=== PATIENT | male | born 1975 | race Caucasian/White ===

== ENCOUNTER 2018-08-15 19:04 | Emergency (ER) | payer BC, OTHER ==
[~2018-08-15] VITALS: Ht 175.3 cm; Wt 77.1 kg
--- OUTSIDE RECORDS SUMMARY | ~2018-08-15 | XMS | Encounter Summary ---
Demographics + + + | Address | [address] | | | [place] [address] | + + + | Home Phone | | + + + | Preferred Language | Unknown | + + + | Marital Status | | + + + | Congregation Affiliation | LDS | + + + | Race | White | + + + | Ethnic Group | Not or | + + + Author + + + | Author | [facility] | + + + | Organization | [facility] | + + + | Address | Unknown | + + + | Phone | Unavailable | + + + Support + + + + + | Name | Relationship | Address | Phone | + + + + + | MATTY GAMBLE | ECON | [address] | | | | | [place] | | | | | [address] | | + + + + + Care Team Providers + +------+ + | Care Mds Rn Name | Role | Phone | + +------+ + | Sam Powell DO | PCP | | + +------+ + Reason for Visit + + + | Reason | Comments | + + + | Refill Request | | + + + Encounter Details +--------+--------+ + + + | Date | Type | Department | Care Team | Description | +--------+--------+ + + + | 07/04/ | Refill | Transplant | [facility] | Refill Request | | 2018 | | Coordinators [address] MD [address] | | | | | [address] | [place], [place] | | | | | Road [place], [place] | [address] | | | | | [address] | [phone] | | | | | [phone] | | | +--------+--------+ + + + Social History + +-------+ +--------+------+ | Tobacco Use | Types | Packs/Day | Years | Date | | | | | Used | | + +-------+ +--------+------+ | Never Smoker | | | | | + +-------+ +--------+------+ + +---+---+---+ | Smokeless Tobacco: | | | | | Never Used | | | | + +---+---+---+ + + +---------+ + | Alcohol Use | Drinks/We | oz/Week | Comments | | | ek | | | + + +---------+ + | No | | | | + + +---------+ + + + + | Sex Assigned at | Date Recorded | | | | + + + | Not on file | | + + + as of this encounter Plan of Treatment +--------+---------+ + + + | Date | Type | Specialty | Care Team | Description | +--------+---------+ + + + | 06/08/ | Office | Liver Transplant | José Miguel Ornelas | | | 2019 | Visit | | MD [address] | | | | | | [place] [facility] [place] | | | | | | [address] | | | | | | [phone] | | | | | | | | +--------+---------+ + + + as of this encounter Visit Diagnoses Not on filein this encounter"
--- OUTSIDE RECORDS SUMMARY | ~2018-08-15 | XMS | Encounter Summary ---
Demographics + + + | Address | [address] | | | [place] [address] | + + + | Home Phone | | + + + | Preferred Language | Unknown | + + + | Marital Status | | + + + | Rastafarian Affiliation | LDS | + + + | Race | White | + + + | Ethnic Group | Not or | + + + Author + + + | Author | [facility] | + + + | Organization | [facility] | + + + | Address | Unknown | + + + | Phone | Unavailable | + + + Support + + + + + | Name | Relationship | Address | Phone | + + + + + | MATTY GAMBLE | ECON | [address] | | | | | [place] | | | | | [address] | | + + + + + Care Team Providers + +------+ + | Care Deposit Refund Clerk Name | Role | Phone | + +------+ + | Sam Powell DO | PCP | | + +------+ + Reason for Visit + + + | Reason | Comments | + + + | Liver Transplant | follow-up [facility] results | | Follow Up | | + + + Encounter Details +--------+ + + + + | Date | Type | Department | Care Team | Description | +--------+ + + + + | 07/21/ | MyChart | Transplant | Helen Weller RN | RE: update from | | 2018 | Encounter | Coordinators [address] | [address] | | | | [address] | [facility], | | | | | [address] [place], [place] | [place] [address] | | | | | [address] | | | | | | [phone] | | | +--------+ + + + + Social History + +-------+ [...] | José Miguel Ornelas | | | 2018 | Visit | | MD [address] | | | | | | [place], [place] | | | | | | [address] | | | | | | [phone] | | | | | | | | +--------+---------+ + + + as of this encounter Visit Diagnoses Not on filein this encounter"
--- OUTSIDE RECORDS SUMMARY | ~2018-08-15 | XMS | Clinical Summary ---
Demographics + + + | Address | [address] | | | [place] [address] | + + + | Home Phone | | + + + | Preferred Language | Unknown | + + + | Marital Status | | + + + | Sikhism Affiliation | LDS | + + + | Race | White | + + + | Ethnic Group | Not or | + + + Author + + + | Author | [facility] | + + + | Organization | [facility] | + + + | Address | Unknown | + + + | Phone | Unavailable | + + + Support + + + + + | Name | Relationship | Address | Phone | + + + + + | MATTY MACK | ECON | [address] | | | | | [place] | | | | | [address] | | + + + + + Care Team Providers + +------+ + | Care Tourist Adviser Name | Role | Phone | + +------+ + | Sam Powell DO | PP | | + +------+ + Source Comments BL[facility] Allergies + + + + + + | Active Allergy | Reactions | Severity | Noted | Comments | | | | | Date | | + + + + + + | Mycophenolate | Nausea | | 02/07/20 | Unable to take due | | Mofetil | | | 12 | to upset stomach | + + + + + + | Zinc | Nausea and Vomiting | | 02/07/20 | | | | | | 12 | | + + + + + + Current Medications + + + +---------+------+------+-------+ | Prescription | Sig. | Disp. | Refills | Star | End | Statu | | | | | | t | Date | s | | | | | | Date | | | + + + +---------+------+------+-------+ | multivitamin Oral | Take 1 Cap by mouth | 100 Cap | 5 | 05/17 | | Activ | | capsule | once daily. | | | 01/06 | | e | | | | | | 13 | | | + + + +---------+------+------+-------+ | aspirin 325 mg | Take 1 Tab by mouth | 100 Tab | 5 | 07 | | Activ | | Oral tablet | once daily. | | | 220 | | e | | | | | | 13 | | | + + + +---------+------+------+-------+ | calcium-vitamin D | Take 1 Tab by mouth | 100 Tab | 5 | 05/17 | | Activ | | 500 mg(1,250mg) -200 | three times daily | | | 220 | | e | | unit Oral tablet | with meals. | | | 13 | | | + + + +---------+------+------+-------+ | magnesium oxide | Take 1 Tab by mouth | 60 Tab | 5 | 06/17 | | Activ | | 400 mg Oral tablet | two times daily. | | | 02/03 | | e | | | | | | 13 | | | + + + +---------+------+------+-------+ | lansoprazole | Take 1 Cap by mouth | 30 Cap | 5 | 08 | | Activ | | (PREVACID) 30 mg | once daily in the | | | 320 | | e | | Oral capsule,delayed | morning. Administer | | | 13 | | | | release(DR/EC) | before food; best if | | | | | | | | taken before | | | | | | | | breakfast. | | | | | | + + + +---------+------+------+-------+ | | Take 1 Tab by mouth | 30 Tab | 5 | 06/17 | | Activ | | trimethoprim-sulfame | once daily. | | | 02/03 | | e | | thoxazole 80-400 mg | | | | 13 | | | | Oral tablet | | | | | | | + + + +---------+------+------+-------+ | azaTHIOprine 100 | Take 50 mg by mouth | | | | | Activ | | mg oral tablet | three times daily. | | | | | e | + + + +---------+------+------+-------+ | | Take by mouth. | | | | | Activ | | multivitamin-therape | | | | | | e | | utic minerals | | | | | | | | (VITAMINS AND | | | | | | | | MINERALS) oral | | | | | | | | tablet | | | | | | | + + + +---------+------+------+-------+ | PREDNISONE 5 mg | take 1 tablet by | 90 | 4 | 03/2 | | Activ | | oral | mouth once daily | tablet | | 1/20 | | e | | tabletIndications: | | | | 18 | | | | Liver replaced by | | | | | | | | transplant (HCC) | | | | | | | + + + +---------+------+------+-------+ | TACROLIMUS 1 mg | take 3 capsules by | 540 | 5 | 06/2 | | Activ | | oral | mouth twice a day | capsule | | 1/20 | | e | | capsuleIndications: | | | | 18 | | | | Liver replaced by | | | | | | | | transplant (HCC) | | | | | | | + + + +---------+------+------+-------+ | AZATHIOPRINE 50 mg | take 3 tablets by | 270 | 3 | 08/2 | | Activ | | oral tablet | mouth every evening | tablet | | 0/20 | | e | | | | | | 18 | | | + + + +---------+------+------+-------+ Active Problems + + + | Problem | Noted Date | + + + | 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 | + + + | Ulcerative colitis (HCC) | 10/18/2010 | + + + | Liver replaced by transplant (HCC) | 03/23/2008 | + + + | Complication of transplanted liver (HCC) | 03/23/2008 | + + + + + | Overview: ICD10 | + + Resolved Problems + + + + | Problem | Noted | Resolved | | | Date | Date | + + + + | Postoperative wound dehiscence | 06/11/20 | | | | 13 | 4 | + + + + | Cholangitis | 05/12/20 | | | | 13 | 4 | + + + + | Abdominal pain | 05/12/20 | | | | 13 | 4 | + + + + | Nausea and vomiting | 05/12/20 | | | | 13 | 4 | + + + + | Biliary obstruction | 04/16/20 | | | | 13 | 4 | + + + + | Hyperbilirubinemia | 10/08/20 | | | | 12 | 4 | + + + + | Abdominal pain | 10/08/20 | | | | 12 | 4 | + + + + | Jaundice, hepatocellular | 12/21/19 | | | | 12 | 4 | + + + + | Red cell antibodies - allow additional time for crossmatch | 10/25/20 | | | | 10 | 4 | + + + + + + | Overview: Patient has an 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 These antibodies | | interfere with compatibility testing. Allow at 4-6 hours for | | completion of compatibility testing. | + + Encounters +--------+ + + + + | Date | Type | Specialty | Care Team | Description | +--------+ + + + + | 07/24/ | Telephone | | José Miguel Ornelas | Follow-up encounter | | 2017 | | | MD Maximo | (Liver biopsy | | | | | | results) | +--------+ + + + + | 07/24/ | Documentati | | Helen Weller RN | Liver Transplant | | 2017 | on | | | Follow Up (path | | | | | | conference) | +--------+ + + + + | 07/21/ | MyChart | | Helen Weller RN | RE: update from | | 2017 | Encounter | | | Ceci | +--------+ + + + + | 07/09/ | Hospital | | Manjinder Paris | | | 2017 | Encounter | | | | +--------+ + + + + | 07/09/ | Documentati | | Helen Weller RN | Liver Transplant | | 2018 | on | | | Follow Up (follow-up | | | | | | MRCP) | +--------+ + + + + | 07/09/ | MyChart | | Dora Haywood, | RE: RE: Appointments | 2017 | Encounter | | RN | | +--------+ + + + + | 07/08/ | Hospital | | José Miguel Ornelas | | 2017 | Encounter | | E, MD | | +--------+ + + + + | 07/04/ | Refill | | José Miguel Ornelas | Refill Request | 2018 | | | E, MD | | +--------+ + + + + | 06/30/ | MyChart | | Dora Haywood, | RE: RE: Biopsy | 2017 | Encounter | | RN | | +--------+ + + + + | 06/30/ | MyChart | | Radiology | Ultrasound LIVER | | 2018 | Encounter | | | biopsy prep | | | | | | information. Please | | | | | | read now. | +--------+ + + + + | 06/23/ | Procedure | | | | | 2018 | Pass | | | | +--------+ + + + + | 06/23/ | Documentati | | José Miguel Ornelas | Liver Transplant | | 2018 | on | | E, | Follow Up (elevated | | | | | | lft's) | +--------+ + + + + | 06/22/ | Abstract | | José Miguel Ornelas | | | 2018 | | | E, MD | | +--------+ + + + + | 06/09/ | Office | | José Miguel Ornelas | Immunosuppression | | 2017 | Visit | | E, MD | (HCC) (Primary Dx); | | | | | | Liver transplanted | | | | | | (HCC); Elevated | | | | | | liver enzymes | +--------+ + + + + | 06/09/ | MyChart | | Dora Haywood, | labs | | 2018 | Encounter | | RN | | +--------+ + + + + | 06/09/ | Abstract | | José Miguel Ornelas | | | 2017 | | | E, MD | | +--------+ + + + + from Last 3 Months Immunizations + + + + | Name | Dates Previously Given | Next Due | + + + + | HepA-Adult | 01/23/2004 | | + + + + | HepB-Adult | 01/23/2004 | | + + + + | Influenza, seasonal, | 08/28/2016 | | | injectable, | | | | preservative free | | | | (IIV3) | | | + + + + | Influenza, split | 08/07/2011 | | + + + + | Influenza, split | 07/26/2015 | | | (incl. purified | | | | surface antigen) | | | + + + + | Pneumococcal 23 | 02/05/2012, 01/18/2004 | | + + + + | Ppd (tuberculin | 04/21/2012 | | | Purified Protein | | | | Derivative) | | | + + + + | Tdap | 02/05/2012 | | + + + + | Tetanus Toxoid, | 01/18/2004 | | | adsorbed | | | + + + + Family History + +------+--------+ + | Relation | Name | Status | Comments | + +------+--------+ + Social History + +-------+ +--------+------+ | [...] on file | | + + + Last Filed Vital Signs + + + + | Vital Sign | Reading | Time Taken | + + + + | Blood Pressure | 100/74 | 07/09/2018 10:45 AM PDT | + + + + | Pulse | 73 | 07/09/2018 10:45 AM PDT | + + + + | Temperature | 36.8 C (98.2 F) | 07/09/2018 10:15 AM PDT | + + + + | Respiratory Rate | 17 | 07/09/2018 10:45 AM PDT | + + + + | Oxygen Saturation | 98% | 07/09/2018 10:45 AM PDT | + + + + | Inhaled Oxygen | - | - | | Concentration | | | + + + + | Weight | 79.4 kg (175 lb) | 07/09/2018 7:32 AM PDT | + + + + | Height | 175.3 cm (5' 9") | 07/09/2018 7:32 AM PDT | + + + + | Body Mass Index | 25.84 | 07/09/2018 7:32 AM PDT | + + + + Plan of Treatment +--------+---------+ + + + | Date | Type | Specialty | Care Team | Description | +--------+---------+ + + + | 06/08/ | Office | | José Miguel Ornelas | | | 2019 | Visit | | MD Maximo [address] | | | | | | [place], [place] | | | | | | [address] | | | | | | [phone] | | | | | | | | +--------+---------+ + + + + + + + + | Health Maintenance | Due Date | Last Done | Comments | + + + + + | INFLUENZA VACCINE | | 07/14/2017, 08/28/2016, | | | (FLU SHOT) | 8 | 08/27/2016, Additional history | | | | | exists | | + + + + + Implants + +------+--------+ +--------+--------+--------+ | Explanted | Type | Area | Manufacture | Device | Expira | Model | | | | | r | | tion | / | | | | | | Identi | Date | Serial | | | | | | fier | | / Lot | + +------+--------+ +--------+--------+--------+ | Stent Sof-Flex 7.0 X 12fr - | | N/A: | COOK | | 05/26/ | [id number] | | [id number]: Qty: 1 on | | Abdome | MEDICAL | | 2014 | | | 05/26/2013 by Joanna Rosales, | | n | | | | /[id number] | | MD | | | | | | 2 | | | | | | | | /[id number] | | | | | | | | 475 | + +------+--------+ +--------+--------+--------+ Procedures + +--------+ + + + | Procedure Name | Priori | Date/Time | Associated Diagnosis | Comments | | | ty | | | | + +--------+ + + + | US BIOPSY LIVER WITH | Routin | 07/09/2018 | Liver replaced by | Results for this | | GUIDANCE | e | 9:59 AM | transplant (HCC) | procedure are in the | | | | PDT | | results section. | + +--------+ + + + | SURGICAL PATHOLOGY | Routin | 07/09/2018 | | Results for this | | | e | 8:43 AM | | procedure are in the | | | | PDT | | results section. | + +--------+ + + + | PROCEDURE NOTE | Routin | 07/08/2018 | | Results for this | | | e | 11:59 PM | | procedure are in the | | | | PDT | | results section. | + +--------+ + + + | MRI CHOLANGIOGRAPHY | Routin | 07/08/2018 | Liver replaced by | Results for this | | WWO CONTRAST (+ | e | 6:58 PM | transplant (HCC) | procedure are in the | | LIVER MASS) | | PDT | | results section. | + +--------+ + + + | LIVER TRANSPLANT | Routin | 06/19/2018 | | Results for this | | POST PANEL (EXT | e | 6:57 AM | | procedure are in the | | RESULTS) | | PDT | | results section. | + +--------+ + + + | LIVER TRANSPLANT | Routin | 06/05/2018 | | Results for this | | POST PANEL (EXT | e | 6:53 AM | | procedure are in the | | RESULTS) | | PDT | | results section. | + +--------+ + + + from Last 3 Months Results US BIOPSY LIVER WITH GUIDANCE (07/09/2018 9:59 AM) + + + | Narrative | Performed At | + + + | PROCEDURE: US-GUIDED LIVER BIOPSY (NON-FOCAL). HISTORY: | [facility] | | Abnormal liver function tests (LFTs), Liver transplant recipient | RADIOLOGY VOICE | | Focused history and physical exam: Vital signs stable, heart rate | RECOGNITION 2 | | regular, lungs clear to auscultation. No significant changes in | | | relevant past or current medical conditions. Patient condition is | | | appropriate for current procedure, will proceed with procedure. I | | | agree with the Sedation/Analgesia plan as documented in EPIC. | | | COMPARISON: [facility] 07/08/2018 TECHNIQUE: After a procedures, | | | alternatives, risks, and questions (PARQ) conference, written and oral | | | consent was obtained from the patient. A Team Pause was | | | performed. The liver was scanned, and a point was marked on the | | | skin, overlying the right lobe. The area was prepped and draped in | | | sterile fashion. 10 ml of 1% buffered lidocaine was used for local | | | anesthesia. Under ultrasound guidance, a 16-gauge core biopsy of the | | | liver was obtained. The specimen was submitted in formalin to | | | pathology. The patient tolerated the procedure without complication | | | and returned to 11B Procedural Care Unit for post-procedure | | | monitoring. Moderate sedation was supervised by the attending | | | radiologist and administered by the radiology nurse using 1 mg Versed | | | IV and 150 mcg Fentanyl IV. Sedation start time 0927. Sedation stop | | | time 0940. FINDINGS: The liver demonstrates normal | | | echogenicity. No focal lesion. The gallbladder and bile ducts are | | | normal. Procedure image demonstrates the needle tip within the | | | right lobe. Post procedure imaging shows no hematoma. | | | IMPRESSION: Ultrasound-guided non-focal liver biopsy. | | | Attestation statement: By my electronic signature below, I, the | | | attending radiologist, was present for the entire procedure as | | | described in this note. I have personally reviewed the images and, | | | if necessary, edited the report. I agree with the report as now | | | presented. Final signature: Guadalupe Greer MD 07/09/2018 10:14 | | | AM Preliminary: Gwen Rosado MD 07/09/2018 9:49 AM | | | Dictation initiated: Gwen Rosado MD 07/09/2018 9:40 AM | | + + + + + | Procedure Note | + + | Service Account, Cuurio In Interface - 07/09/2018 10:15 AM PDT PROCEDURE: | | US-GUIDED LIVER BIOPSY (NON-FOCAL). HISTORY: Abnormal liver function tests (LFTs), Liver | | transplant recipient Focused history and physical exam: Vital signs stable, heart rate | | regular, lungs clear to auscultation. No significant changes in relevant past or current | | medical conditions. Patient condition is appropriate for current procedure, will | | proceed with procedure. I agree with the Sedation/Analgesia plan as documented in EPIC. | | COMPARISON: [facility] 07/08/2018 TECHNIQUE: After a procedures, alternatives, risks, and | | questions (PARQ) conference, written and oral consent was obtained from the patient. A | | Team Pause was performed. The liver was scanned, and a point was marked on the skin, | | overlying the right lobe. The area was prepped and draped in sterile fashion. 10 ml of | | 1% buffered lidocaine was used for local anesthesia. Under ultrasound guidance, a | | 16-gauge core biopsy of the liver was obtained. The specimen was submitted in formalin | | to pathology. The patient tolerated the procedure without complication and returned to | | 11B Procedural Care Unit for post-procedure monitoring. Moderate sedation was | | supervised by the attending radiologist and administered by the radiology nurse using 1 | | mg Versed IV and 150 mcg Fentanyl IV. Sedation start time 0927. Sedation stop time 0940. | | FINDINGS: The liver demonstrates normal echogenicity. No focal lesion. The gallbladder | | and bile ducts are normal. Procedure image demonstrates the needle tip within the | | right lobe. Post procedure imaging shows no hematoma. IMPRESSION: Ultrasound-guided | | non-focal liver biopsy. Attestation statement: By my electronic signature below, I, | | the attending radiologist, was present for the entire procedure as described in this | | note. I have personally reviewed the images and, if necessary, edited the report. I | | agree with the report as now presented. Final signature: Guadalupe Greer MD 07/09/2018 | | 10:14 AM Preliminary: Gwen Rosado MD 07/09/2018 9:49 AM Dictation initiated: | | Gwen Rosado MD 07/09/2018 9:40 AM | |IMPRESSION: | | | |Ultrasound-guided non-focal liver biopsy. | | | | | | | |Attestation statement: By my electronic signature below, I, the attending radiologist, was present for the entire procedure as described in this note. | | | |I have personally reviewed the images and, if necessary, edited the report. I agree with th e report as now presented. | | | |Final signature: Guadalupe Greer MD 07/09/2018 10:14 AM | |Preliminary: Gwen Rosado MD 07/09/2018 9:49 AM | |Dictation initiated: Gwen Rosado MD 07/09/2018 9:40 AM | + + + +---------+ + + | Performing | Address | City/State/Zipcode | Phone Number | | Organization | | | | + +---------+ + + | [facility] | | | | | VOICE RECOGNITION 2 | | | | + +---------+ + + SURGICAL PATHOLOGY (07/09/2018 8:43 AM) + + + + + | Component | Value | Ref Range | Performed At | + + + + + | Clinical History | Elevated LFTs. Per | | [facility] | | | chart, history of | | OF PATHOLOGY | | | primary biliary | | | | | cirrhosis status post | | | | | first orthotopic liver | | | | | transplant in March 2004 | | | | | and re-transplant for | | | | | recurrence in May 2013, | | | | | now presenting with | | | | | variably elevated liver | | | | | function tests since | | | | | 2015 with notably high | | | | | alk phos levels. On | | | | | 06/05/2018, AST 82, ALT | | | | | 64, Alk Phos 747, and | | | | | total bilirubin 4.8. | | | + + + + + | Final Pathologic | A. Allograft liver, | | [facility] | | Diagnosis | biopsy: Changes | | OF PATHOLOGY | | | consistent with chronic | | | | | bile duct injury, see | | | | | comment No evidence of | | | | | acute or chronic | | | | | rejection Trichrome | | | | | stain confirms portal | | | | | and periportal fibrosis, | | | | | with focal | | | | | bridgingComment: | | | | | Sections reveal hepatic | | | | | parenchyma with portal | | | | | and yuan-portal | | | | | fibrosis, bile duct | | | | | damage, ductular | | | | | reaction, and | | | | | cholestasis. True bile | | | | | ducts are present in | | | | | normal numbers, but | | | | | exhibit signs of damage | | | | | including epithelial | | | | | drop-out. A copper stain | | | | | is positive in small | | | | | clusters of periportal | | | | | hepatocytes, suggesting | | | | | chronicity. A PAS/D | | | | | stain fails to highlight | | | | | pathologic | | | | | intracytoplasmic | | | | | inclusions and an iron | | | | | stain is negative. There | | | | | is no evidence of acute | | | | | or chronic graft | | | | | rejection. In aggregate, | | | | | these histologic | | | | | features are those of | | | | | chronic bile duct | | | | | injury, for which the | | | | | differential diagnosis | | | | | includes recurrent | | | | | primary sclerosing | | | | | cholangitis, bile duct | | | | | stricture, or other | | | | | causes of outflow | | | | | obstruction. Meraz slides | | | | | were also reviewed by | | | | | Dr. Flynn Cortes, | | | | | with agreement.Case | | | | | seen by:Jodie Rodríguez, | | | | | DO | | | | | | | | | | Pathologist My | | | | | electronic signature | | | | | indicates that I have | | | | | personally reviewed all | | | | | diagnostic slides, the | | | | | gross and/or microscopic | | | | | portion of this report | | | | | and formulated the final | | | | | diagnosis. | | | + + + + + | Gross Description | Received in formalin is | | [facility] | | | a single specimen | | OF PATHOLOGY | | | labeled with the | | | | | patient's name (initials | | | | | JL) and medical record | | | | | number [id number]. | | | | | Liver: Received labeled | | | | | "SONIA-A" is a single core | | | | | of green soft tissue | | | | | measuring 1.6 x 0.1 cm. | | | | | The specimen is wrapped | | | | | and entirely submitted | | | | | in cassette A1.(LN) | | | + + + + + | ANCILLARY | Analyte specific | | [facility] | | INFORMATION | reagents are used in | | OF PATHOLOGY | | | many laboratory tests | | | | | necessary for standard | | | | | medical care. This test | | | | | was developed and its | | | | | performance | | | | | characteristics | | | | | determined by [facility] | | | | | laboratories. It has | | | | | not been cleared or | | | | | approved by the [place] Food | | | | | and Drug Administration | | | | | (FDA). FDA does not | | | | | require this test to go | | | | | through premarket FDA | | | | | review. This test is | | | | | used for clinical | | | | | purposes. It should not | | | | | be regarded as | | | | | investigational or for | | | | | research. This | | | | | laboratory is certified | | | | | under the Clinical | | | | | Laboratory Improvement | | | | | Amendments (CLIA) as | | | | | qualified to perform | | | | | high complexity clinical | | | | | laboratory testing. | | | + + + + + + + | Specimen | + + | Tissue - Liver | + + + + + + + | Performing | Address | City/State/Zipcode | Phone Number | | Organization | | | | + + + + + | [facility] | [address] | [place] [address] | | | PATHOLOGY | [address] | | | + + + + + PROCEDURE NOTE (07/08/2018 11:59 PM)MRI CHOLANGIOGRAPHY WWO CONTRAST (+ LIVER MASS) (2017 6:58 PM) + + + | Narrative | Performed At | + + + | EXAM: Abdomen MRI/MRCP without and with intravenous contrast. | [facility] | | HISTORY: Abnormal liver function tests (LFTs) s/p ltx eval for ductal | RADIOLOGY VOICE | | dilation. 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 then Re-transplant | RECOGNITION 2 | | 05/26/13 for recurrent PSC complicated by significant recurrent | | | cholangitis. Now with elevated LFTs question recurrent PSC versus | | | ischemic cholangiopathy. COMPARISON: Outside MRCP 10/27/2017 | | | TECHNIQUE: Multiplanar MRI of the abdomen was performed without and | | | with gadolinium-based intravenous contrast. MRCP was also | | | performed. FINDINGS: LIVER: Status post liver transplant with | | | hepaticojejunostomy. No steatosis. No focal enhancing lesions. Diffuse | | | mildly irregular intrahepatic ductal dilatation with progressive | | | dilation of medial left intrahepatic ducts up to 9 mm (704/55), | | | previously 5 mm. Lateral left intrahepatic ducts also asymmetrically | | | dilated, less prominent than medial. No discrete mass lesion | | | identified at the apex of dilated left ducts however focal stricture, | | | either inflammatory or neoplastic, should be considered. Diffuse | | | peribiliary enhancement is compatible with a inflammatory process. | | | Restricted diffusion noted circumferentially around the dilated left | | | hepatic ducts suggestive of a superimposed infectious process. | | | PANCREAS: Unremarkable. SPLEEN: Mildly enlarged, unchanged. | | | ADRENALS: Unremarkable. KIDNEYS: Small bilateral renal cysts, not | | | significantly changed from priors. GI TRACT: Visualized portions are | | | unremarkable. PERITONEUM: No free air or fluid. LYMPH NODES: No | | | lymphadenopathy. VESSELS: Unremarkable. BONES AND SOFT TISSUES: | | | Unremarkable. IMPRESSION: Diffuse irregular branching and | | | stricturing ductal dilatation most consistent with recurrent PSC, with | | | progressive asymmetric left-sided intrahepatic segmental ducts which | | | may reflect asymmetric PSC or superimposed neoplastic process. | | | Restricted diffusion and periductal enhancement in the left hepatic | | | lobe also raises concern for superimposed cholangitis. No focal | | | hepatic mass lesion identified. I have personally reviewed the | | | images and, if necessary, edited the report. I agree with the report | | | as now presented. Final signature: Agustina Garcia MD | | | 07/09/2018 8:48 AM Preliminary: Agustina Garcia MD | | | Dictation initiated: Agustina Garcia MD 07/09/2018 8:18 AM | | + + + + + | Procedure Note | + + | Service Account, Radiant Res In Interface - 07/09/2018 8:50 AM PDT EXAM: Abdomen | | MRI/MRCP without and with intravenous contrast. HISTORY: Abnormal liver function tests | | (LFTs) s/p ltx eval for ductal dilation. 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 then | | Re-transplant 05/26/13 for recurrent PSC complicated by significant recurrent | | cholangitis. Now with elevated LFTs question recurrent PSC versus ischemic | | cholangiopathy. COMPARISON: Outside MRCP 10/27/2017 TECHNIQUE: Multiplanar MRI of the | | abdomen was performed without and with gadolinium-based intravenous contrast. MRCP was | | also performed. FINDINGS: LIVER: Status post liver transplant with hepaticojejunostomy. | | No steatosis. No focal enhancing lesions. Diffuse mildly irregular intrahepatic ductal | | dilatation with progressive dilation of medial left intrahepatic ducts up to 9 mm | | (704/55), previously 5 mm. Lateral left intrahepatic ducts also asymmetrically dilated, | | less prominent than medial. No discrete mass lesion identified at the apex of dilated | | left ducts however focal stricture, either inflammatory or neoplastic, should be | | considered. Diffuse peribiliary enhancement is compatible with a inflammatory process. | | Restricted diffusion noted circumferentially around the dilated left hepatic ducts | | suggestive of a superimposed infectious process. PANCREAS: Unremarkable. SPLEEN: Mildly | | enlarged, unchanged.ADRENALS: Unremarkable.KIDNEYS: Small bilateral renal cysts, not | | significantly changed from priors.GI TRACT: Visualized portions are | | unremarkable.PERITONEUM: No free air or fluid. LYMPH NODES: No lymphadenopathy.VESSELS: | | Unremarkable. BONES AND SOFT TISSUES: Unremarkable. 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 Restricted diffusion and periductal | | enhancement in the left hepatic lobe also raises concern for superimposed cholangitis. | | No focal hepatic mass lesion identified. I have personally reviewed the images and, if | | necessary, edited the report. I agree with the report as now presented. Final | | signature: Agustina Garcia MD 07/09/2018 8:48 AM Preliminary: Agustina Garcia MD | | Dictation initiated: Agustina Garcia MD 07/09/2018 8:18 AM | | | |IMPRESSION: | | | |Diffuse irregular branching and stricturing ductal dilatation most consistent with recurren t PSC, with progressive asymmetric left-sided intrahepatic segmental ducts which may reflect asymmetric PSC or | |superimposed neoplastic process. Restricted diffusion and periductal enhancement in the lef t hepatic lobe also raises concern for superimposed cholangitis. | | | |No focal hepatic mass lesion identified. | | | |I have personally reviewed the images and, if necessary, edited the report. I agree with th e report as now presented. | | | |Final signature: Agustina Garcia MD 07/09/2018 8:48 AM | |Preliminary: Agustina Garcia MD | |Dictation initiated: Agustina Garcia MD 07/09/2018 8:18 AM | + + + +---------+ + + | Performing | Address | City/State/Zipcode | Phone Number | | Organization | | | | + +---------+ + + | [facility] | | | | | VOICE RECOGNITION 2 | | | | + +---------+ + + LIVER TRANSPLANT POST PANEL (EXT RESULTS) (06/19/2018 6:57 AM)Only the most recent of 2 re sults within the time period is included. + +-------+ + + | Component | Value | Ref Range | Performed At | + +-------+ + + | SODIUM, PLASMA (LAB) | 139 | mmol/L | [facility] - | | | | | [place] | + +-------+ + + | POTASSIUM, PLASMA | 4.2 | mmol/L | [facility] - | | (LAB) | | | [place] | + +-------+ + + | CHLORIDE, PLASMA | 100 | mmol/L | [facility] - | | (LAB) | | | [place] | + +-------+ + + | TOTAL CO2, PLASMA | 23 | mmol/L | [facility] - | | (LAB) | | | [place] | + +-------+ + + | GLUCOSE, PLASMA | 86 | 65 - 110 mg/dL | [facility] - | | (LAB) | | | [place] | + +-------+ + + | BUN, PLASMA (LAB) | 16 | mg/dL | [facility] - | | | | | [place] | + +-------+ + + | CREATININE PLASMA | 0.78 | mg/dL | [facility] - | | (LAB) | | | [place] | + +-------+ + + | CALCIUM, PLASMA | 9.7 | mg/dL | [facility] - | | (LAB) | | | [place] | + +-------+ + + | PHOSPHORUS, PLASMA | 2.5 | mg/dL | [facility] - | | (LAB) | | | [place] | + +-------+ + + | MAGNESIUM,PLASMA | 1.8 | mg/dL | [facility] - | | | | | [place] | + +-------+ + + | TOTAL PROTEIN, | 7.1 | g/dL | [facility] - | | PLASMA (LAB) | | | [place] | + +-------+ + + | ALBUMIN, PLASMA | 3.8 | g/dL | [facility] - | | (LAB) | | | [place] | + +-------+ + + | BILIRUBIN TOTAL | 7.2 | Transcutaneous | [facility] - | | | | Bilirubinometer | [place] | + +-------+ + + | BILIRUBIN DIRECT | 3.9 | mg/dL | [facility] - | | | | | [place] | + +-------+ + + | ALK PHOS | 1,024 | U/L | [facility] - | | | | | [place] | + +-------+ + + | AST(SGOT) | 98 | U/L | [facility] - | | | | | [place] | + +-------+ + + | ALT (SGPT) | 65 | U/L | [facility] - | | | | | [place] | + +-------+ + + | URIC ACID, PLASMA | 5.2 | mg/dL | [facility] - | | (LAB) | | | [place] | + +-------+ + + | WHITE CELL COUNT | 7.3 | K/cu mm | [facility] - | | | | | [place] | + +-------+ + + | HEMATOCRIT | 41.5 | % | [facility] - | | | | | [place] | + +-------+ + + | HEMOGLOBIN | 14.5 | 13.5 - 17.5 g/dL | [facility] - | | | | | [place] | + +-------+ + + | PLATELET COUNT | 261 | K/cu mm | [facility] - | | | | | [place] | + +-------+ + + | TACROLIMUS (FK 506) | 5.9 | ng/mL | [facility] - | | | | | [place] | + +-------+ + + + + | Specimen | + + | Blood - Blood | + + + + + | Narrative | Performed At | + + + | | | + + + + + + + + | Performing | Address | City/State/Zipcode | Phone Number | | Organization | | | | + + + + + | [facility] - | [address] | [place] | [phone] | | [place] | | | | + + + + + from Last 3 Months Insurance + +--------+ +------+ + + | Payer | Benefi | Subscriber | Type | Phone | Address | | | t Plan | ID | | | | | | / | | | | | | | Group | | | | | + +--------+ +------+ + + | [employer] | REGENC | xxxxxxxxxxx | PPO | [phone] | [address] [address] [place] | | SHIELD | E BCBS | [phone] | | [phone] | [place], [place] | | | | | | | [address] | + +--------+ +------+ + + | [employer] | MODA | [phone] | PPO | +- | [address] [address] | | | OEBB | | | [phone] | [place] [address] | | | [place] | | | | | | | [place] | | | | | + +--------+ +------+ + + + +--------+ +--------+ + + | Guarantor Name | Accoun | Relation to | Date | Phone | Billing Address | | | t Type | Patient | of | | | | | | | | | | + +--------+ +--------+ + + | SALVADOR MACK | Person | Self [birth year] | Work: | [address] | | | al/Fam | | 1975 | +- | [place] [address] | | | juan manuel | | | [address]: | | | | | | | | | | | | | [phone] | | | | | | | [address] | | + +--------+ +--------+ + + | SALVADOR MACK | Case | Self | [birth year] | Work: | [address] | | | Rate | | 1975 | +- | [place] [address] | | | | | | [address] Home: | | | | | | | | | | | | | [phone] | | | | | | | [address]35 | | + +--------+ +--------+ + +
--- OUTSIDE RECORDS SUMMARY | ~2018-08-15 | XMS | Encounter Summary ---
Demographics + + + | Address | [address] | | | [place] [address] | + + + | Home Phone | | + + + | Preferred Language | Unknown | + + + | Marital Status | | + + + | Religion Affiliation | LDS | + + + | Race | White | + + + | Ethnic Group | Not or | + + + Author + + + | Author | [facility] | + + + | Organization | [facility] | + + + | Address | Unknown | + + + | Phone | Unavailable | + + + Support + + + + + | Name | Relationship | Address | Phone | + + + + + | MATTY GAMBLE | ECON | [address] | | | | | [place] | | | | | [address] | | + + + + + Care Team Providers + +------+ + | Care Educational Technology Coordinator Name | Role | Phone | + +------+ + | Sam Powell DO | PCP | | + +------+ + Encounter Details +--------+ + + + + | Date | Type | Department | Care Team | Description | +--------+ + + + + | 06/30/ | MyChart | [facility] | Radiology | Ultrasound LIVER | | 2018 | Encounter | Center at [facility] [address] | | biopsy prep | | | | [address] Elizabeth | | information. Please | | | | Trista Manzanares | | read now. | | | | Wind[address] | | | | | | [place], | | | | | | [place] [address] | | | | | | [phone] | | | +--------+ + + + [...] 2019 | Visit | | MD Maximo [address] | | | | | | [place], [place] | | | | | | [address] | | | | | | [phone] | | | | | | | | +--------+---------+ + + + as of this encounter Visit Diagnoses Not on filein this encounter"
--- OUTSIDE RECORDS SUMMARY | ~2018-08-15 | XMS | Encounter Summary ---
Demographics + + + | Address | [address] | | | [place] [address] | + + + | Home Phone | | + + + | Preferred Language | Unknown | + + + | Marital Status | | + + + | Anabaptism Affiliation | LDS | + + + | Race | White | + + + | Ethnic Group | Not or | + + + Author + + + | Author | [facility] | + + + | Organization | [facility] | + + + | Address | Unknown | + + + | Phone | Unavailable | + + + Support + + + + + | Name | Relationship | Address | Phone | + + + + + | MATTY GAMBLE | ECON | [address] | | | | | [place] | | | | | [address] | | + + + + + Care Team Providers + +------+ + | Care Nursing Consultant Name | Role | Phone | + +------+ + | Sam Powell DO | PCP | | + +------+ + Encounter Details +--------+ + + + + | Date | Type | Department | Care Team | Description | +--------+ + + + + | 06/23/ | Procedure | Diagnostic Imaging | | | | 2018 | Pass | Services at [facility] | | | | | | [address] | | | | | | [facility] | | | | | | Mailcode: [address] | | | | | | [place] | | | | | | [place], [place] | | | | | | [address] | | | | | | [phone] | | | +--------+ + + + [...] 2018 | Visit | | MD Maximo [address] | | | | | | [place], [place] | | | | | | [address] | | | | | | [phone] | | | | | | | | +--------+---------+ + + + as of this encounter Visit Diagnoses Not on filein this encounter"
--- OUTSIDE RECORDS SUMMARY | ~2018-08-15 | XMS | Encounter Summary ---
Demographics + + + | Address | [address] | | | [place] [address] | + + + | Home Phone | | + + + | Preferred Language | Unknown | + + + | Marital Status | | + + + | Restorationism Affiliation | LDS | + + + | Race | White | + + + | Ethnic Group | Not or | + + + Author + + + | Author | [facility] | + + + | Organization | [facility] | + + + | Address | Unknown | + + + | Phone | Unavailable | + + + Support + + + + + | Name | Relationship | Address | Phone | + + + + + | MATTY GAMBLE | ECON | [address] | | | | | [place] | | | | | [address] | | + + + + + Care Team Providers + +------+ + | Care Jetting Machine Operator Name | Role | Phone | + [...] [address] | [address] | | | | [address] | [facility], | | | | | Road [place], [place] | [place] [address] | | | | | [address] | | | | | | [phone] | | | +--------+ + + + [...] 2018 | Visit | | MD Maximo [address] | | | | | | [place], [place] | | | | | | [address] | | | | | | [phone] | | | | | | | | +--------+---------+ + + + as of this encounter Visit Diagnoses Not on filein this encounter"
--- OUTSIDE RECORDS SUMMARY | ~2018-08-15 | XMS | Clinical Summary ---
Demographics + + + | Address | [address] | | | [place] [address] | + + + | Home Phone | | + + + | Preferred Language | Unknown | + + + | Marital Status | Unknown | + + + | Baptist Affiliation | Unknown | + + + | Race | Unknown | + + + | Ethnic Group | Unknown | + + + Author + + + | Author | [facility] | + + + | Organization | [facility] | + + + | Address | Unknown | + + + | Phone | Unavailable | + + + Support + + +---------+ + | Name | Relationship | Address | Phone | + + +---------+ + | Toby Gamble | ECON | Unknown | | + + +---------+ + Care Team Providers + +------+ + | Care Crtts Name | Role | Phone | + +------+ + | Sam Powell DO | PP | | + +------+ + Allergies No Known Allergies Current Medications + + +-------+---------+------+------+-------+ | Prescription | Sig. | Disp. | Refills | Star | End | Statu | | | | | | t | Date | s | | | | | | Date | | | + + +-------+---------+------+------+-------+ | tacrolimus | Take 2 mg by mouth 2 | | | | | Activ | | (PROGRAF) 1 MG | (two) times daily. | | | | | e | | capsule | | | | | | | + + +-------+---------+------+------+-------+ | azathioprine | Take 150 mg by mouth | | | | | Activ | | (IMURAN) 100 MG | daily. | | | | | e | | tablet | | | | | | | + + +-------+---------+------+------+-------+ | predniSONE | Take 5 mg by mouth | | | | | Activ | | (DELTASONE) 5 MG | daily with | | | | | e | | tablet | breakfast. | | | | | | + + +-------+---------+------+------+-------+ | lansoprazole | Take 30 mg by mouth | | | | | Activ | | (PREVACID) 30 MG | every morning before | | | | | e | | capsule | breakfast. | | | | | | + + +-------+---------+------+------+-------+ | aspirin 325 MG | Take 325 mg by mouth | | | | | Activ | | tablet | daily with | | | | | e | | | breakfast. | | | | | | + + +-------+---------+------+------+-------+ | Magnesium 400 MG | Take 800 mg by mouth | | | | | Activ | | CAPS | 2 (two) times | | | | | e | | | daily. | | | | | | + + +-------+---------+------+------+-------+ | Multiple | Take 1 capsule by | | | | | Activ | | Vitamins-Minerals | mouth daily. | | | | | e | | (MULTIVITAMIN ADULT | | | | | | | | PO) | | | | | | | + + +-------+---------+------+------+-------+ | Calcium | Take 1 capsule by | | | | | Activ | | Carb-Cholecalciferol | mouth 3 (three) | | | | | e | | (CALCIUM 600 + D | times daily. | | | | | | | PO) | | | | | | | + + +-------+---------+------+------+-------+ | sertraline | Take 50 mg by mouth | | | | | Activ | | (ZOLOFT) 50 MG | nightly. | | | | | e | | tablet | | | | | | | + + +-------+---------+------+------+-------+ Active Problems Not on file Social History + +-------+ +--------+------+ | Tobacco Use | Types | Packs/Day | Years | Date | | | | | Used | | + +-------+ +--------+------+ | Never Smoker | | | | | + +-------+ +--------+------+ + + +---------+ + | Alcohol Use [...] + + + | Blood Pressure | 117/82 | 12/19/2015 3:30 PM PST | + + + + | Pulse | 69 | 12/19/2015 3:30 PM PST | + + + + | Temperature | 36.7 C (98.1 F) | 12/19/2015 11:40 AM PST | + + + + | Respiratory Rate | 16 | 12/19/2015 11:40 AM PST | + + + + | Oxygen Saturation | 96% | 12/19/2015 3:30 PM PST | + + + + | Inhaled Oxygen | - | - | | Concentration | | | + + + + | Weight | 83.9 kg (185 lb) | 12/19/2015 10:12 AM PST | + + + + | Height | 175.3 cm (5' 9") | 12/19/2015 10:12 AM PST | + + + + | Body Mass Index | 27.32 | 12/19/2015 10:12 AM PST | + + + + Plan of Treatment Not on file Results Not on filefrom Last 3 Months Insurance + +--------+ +------+-------+ + | Payer | Benefi | Subscriber | Type | Phone | Address | | | t Plan | ID | | | | | | / | | | | | | | Group | | | | | + +--------+ +------+-------+ + | PREMERA | PREMER | [id number] | | | [address] [address] | | | A BLUE | 3 | | | [place], [place] | | | CARD | | | | [address] | + +--------+ +------+-------+ + | [employer] | [employer]DS | [id number] | | | | | | HEALTH | | | | | | | PLAN | | | | | + +--------+ +------+-------+ + + +--------+ +--------+ + + | Guarantor Name | Accoun | Relation to | Date | Phone | Billing Address | | | t Type | Patient | of | | | | | | | | | | + +--------+ +--------+ + + | SALVADOR GAMBLE | Person | Self [birth year] Home: | [address] | | | al/Fam | | 1976 | [phone] [place] | | | [place] manuel | | | [phone] | [address] | + +--------+ +--------+ + +
--- OUTSIDE RECORDS SUMMARY | ~2018-08-15 | XMS | Encounter Summary ---
Demographics + + + | Address | [address] | | | [place] [address] | + + + | Home Phone | | + + + | Preferred Language | Unknown | + + + | Marital Status | | + + + | Samaritan Affiliation | LDS | + + + [...] + | MATTY GAMBLE | ECON | [address] | | | | | [place] | | | | | [address] | | + + + + + Care Team Providers + +------+ + | Care Health Sciences Dean Name | Role | Phone | + +------+ + | Sam Powell DO | PCP | | + +------+ + Encounter Details +--------+ + + + + | Date | Type | Department | Care Team | Description | +--------+ + + + + | 06/30/ | MyChart | Transplant | Dora Haywood, | RE: RE: Biopsy | | 2018 | Encounter | Coordinators [address] | RN [address] | | | | | [facility] | [facility] | | | | | Road [place], [place] | [place], [place] | | | | | [address] | [address] | | | | | [phone] | | | +--------+ + + + [...] 2019 | Visit | | MD Maximo [address] | | | | | | [place], [place] | | | | | | [address] | | | | | | [phone] | | | | | | | | +--------+---------+ + + + as of this encounter Visit Diagnoses Not on filein this encounter"
--- OUTSIDE RECORDS SUMMARY | ~2018-08-15 | XMS | Encounter Summary ---
Demographics + + + | Address | [address] | | | [place] [address] | + + + | Home Phone | | + + + | Preferred Language | Unknown | + + + | Marital Status | | + + + | Mandaen Affiliation | LDS | + + + | Race | White | + + + | Ethnic Group | Not or | + + + Author + + + | Author | [facility] | + + + | Organization | [facility] | + + + | Address | Unknown | + + + | Phone | Unavailable | + + + Support + + + + + | Name | Relationship | Address | Phone | + + + + + | MATTY GAMBLE | ECON | [address] | | | | | [place] | | | | | [address] | | + + + + + Care Team Providers + +------+ + | Care Demolition Engineer Name | Role | Phone | + +------+ + | Sam Powell DO | PCP | | + +------+ + Encounter Details +--------+ + + + + | Date | Type | Department | Care Team | Description | +--------+ + + + + | 06/09/ | Abstract | Transplant | José [facility]nelas | | | 2018 | | Coordinators [address] MD [address] | | | | | [address] | [place], [place] | | | | | Road [place], [place] | [address] | | | | | [address] | [phone] | | | | | [phone] | | | +--------+ + + + [...] 2019 | Visit | | MD Maximo [address] | | | | | | [place], [place] | | | | | | [address] | | | | | | [phone] | | | | | | | | +--------+---------+ + + + as of this encounter Procedures + +--------+ + + + | [...] section. | + +--------+ + + + in this encounter Results LIVER TRANSPLANT POST PANEL (EXT RESULTS) (06/05/2018 6:53 AM) + +-------+ + + | Component | Value | Ref Range | Performed At | + +-------+ + + | SODIUM, PLASMA (LAB) | 142 | mmol/L | [facility] - | | | | | [place] | + +-------+ + + | POTASSIUM, PLASMA | 4.3 | mmol/L | [facility] - | | (LAB) | | | [place] | + +-------+ + + | CHLORIDE, PLASMA | 104 | mmol/L | [facility] - | | (LAB) | | | [place] | + +-------+ + + | TOTAL CO2, PLASMA | 22 | mmol/L | [facility] - | | (LAB) | | | [place] | + +-------+ + + | GLUCOSE, PLASMA | 79 | 65 - 110 mg/dL | [facility] - | | (LAB) | | | [place] | + +-------+ + + | BUN, PLASMA (LAB) | 15 | mg/dL | [facility] - | | | | | [place] | + +-------+ + + | CREATININE PLASMA | 0.95 | mg/dL | [facility] - | | (LAB) | | | [place] | + +-------+ + + | CALCIUM, PLASMA | 9.8 | mg/dL | [facility] - | | (LAB) | | | [place] | + +-------+ + + | PHOSPHORUS, PLASMA | 2.1 | mg/dL | [facility] - | | (LAB) | | | [place] | + +-------+ + + | MAGNESIUM,PLASMA | 1.6 | mg/dL | [facility] - | | | | | [place] | + +-------+ + + | TOTAL PROTEIN, | 7.1 | g/dL | [facility] - | | PLASMA (LAB) | | | [place] | + +-------+ + + | ALBUMIN, PLASMA | 3.9 | g/dL | [facility] - | | (LAB) | | | [place] | + +-------+ + + | BILIRUBIN TOTAL | 4.8 | Transcutaneous | [facility] - | | | | Bilirubinometer | [place] | + +-------+ + + | BILIRUBIN DIRECT | 2.6 | mg/dL | [facility] - | | | | | [place] | + +-------+ + + | ALK PHOS | 747 | U/L | [facility] - | | | | | [place] | + +-------+ + + | AST(SGOT) | 82 | U/L | [facility] - | | | | | [place] | + +-------+ + + | ALT (SGPT) | 64 | U/L | [facility] - | | | | | [place] | + +-------+ + + | URIC ACID, PLASMA | 5.7 | mg/dL | [facility] - | | (LAB) | | | [place] | + +-------+ + + | WHITE CELL COUNT | 9.4 | K/cu mm | [facility] - | | | | | [place] | + +-------+ + + | HEMATOCRIT | 42.2 | % | [facility] - | | | | | [place] | + +-------+ + + | HEMOGLOBIN | 14.1 | 13.5 - 17.5 g/dL | [facility] - | | | | | [place] | + +-------+ + + | PLATELET COUNT | 312 | K/cu mm | [facility] - | | | | | [place] | + +-------+ + + | TACROLIMUS ([address] 506) | 6.7 | ng/mL | [facility] - | [...] + + | [facility] - | [address] | [place] | [phone] | | [place] | | | | + + + + + in this encounter Visit Diagnoses Not on filein this encounter"
--- OUTSIDE RECORDS SUMMARY | ~2018-08-15 | XMS | Encounter Summary ---
Demographics + + + | Address | [address] | | | [place] [address] | + + + | Home Phone | | + + + | Preferred Language | Unknown | + + + | Marital Status | | + + + | Buddhism Affiliation | LDS | + + + | Race | White | + + + | Ethnic Group | Not or | + + + Author + + + | Author | [facility] | + + + | Organization | [facility] | + + + | Address | Unknown | + + + | Phone | Unavailable | + + + Support + + + + + | Name | Relationship | Address | Phone | + + + + + | MATTY GAMBLE | ECON | [address] | | | | | [place] | | | | | [address] | | + + + + + Care Team Providers + +------+ + | Care Home Care Manager Name | Role | Phone | + +------+ + | Sam Powell DO | PCP | | + +------+ + Reason for Referral Diagnostic Testing (Routine) +--------+--------+ + + + + | Status | Reason | Specialty | Diagnoses / | Referred By | Referred To | | | | | Procedures | Contact | Contact | +--------+--------+ + + + + | Closed | | Radiology | Diagnoses | Naugler, | Yon General | | | | | Liver | José Miguel Marsh, | [address] | | | | | replaced by | [address] | [address] | | | | | transplant | [address] | [facility]on | | | | | ([facility]) | [place], [place] | Road | | | | | Procedures | [address] | Mailcode: | | | | | MRI | Phone: | [address] [facility] | | | | | [facility] | [phone] | Hospital | | | | | PHY WWO | Fax: | [place], [place] | | | | | CONTRAST (+ | [phone] | [address] | | | | | LIVER MASS) | | Phone: | | | | | | | [phone] | | | | | | | Fax: | | | | | | | [phone] | +--------+--------+ + + + + Diagnostic Testing (Routine) +--------+--------+ + + + + | Status | Reason | Specialty | Diagnoses / | Referred By | Referred To | | | | | Procedures | Contact | Contact | +--------+--------+ + + + + | Closed | | Radiology | Diagnoses | Naugler, | Rad General | | | | | Liver | José Miguel Marsh, | [address] | | | | | replaced by | [address] | [address] | | | | | transplant | [address] | Glenn [address]on | | | | | (HCC) | [place], [place] | Road | | | | | Procedures | [address] | Mailcode: | | | | | MRI | Phone: | [address] [facility] | | | | | [facility] | [phone] | Hospital | | | | | PHY WWO | Fax: | [place], [place] | | | | | CONTRAST (+ | [phone] | [address] | | | | | LIVER MASS) | | Phone: | | | | | | | [phone] | | | | | | | Fax: | | | | | | | [phone] | +--------+--------+ + + + + Reason for Visit Diagnostic Testing (Routine) +--------+--------+ + + + + | Status | Reason | Specialty | Diagnoses / | Referred By | Referred To | | | | | Procedures | Contact | Contact | +--------+--------+ + + + + | Closed | | Radiology | Diagnoses | Naugler, | Rad General | | | | | Liver | José Miguel E, | [facility] [address] | | | | | replaced by | [address] | [address] | | | | | transplant | [address] | Glenn Weston | | | | | (HCC) | [facility] [place] | Road | | | | | Procedures | [address] | Mailcode: | | | | | MRI | Phone: | [address] [facility] | | | | | [facility] | [phone] | Hospital | | | | | PHY WWO | Fax: | [place], [place] | | | | | CONTRAST (+ | [phone] | [address] | | | | | LIVER MASS) | | Phone: | | | | | | | [phone] | | | | | | | Fax: | | | | | | | [phone] | +--------+--------+ + + + + Encounter Details +--------+ + + + + | Date | Type | Department | Care Team | Description | +--------+ + + + + | 07/08/ | Hospital | Diagnostic Imaging | José Miguel Ornelas | | | 2017 | Encounter | Services at [facility] | MD Maximo [address] | | | | | [address] | [place], [place] | | | | | [facility] | [address] | | | | | Mailcode: [address] | [phone] | | | | | [address] | | | | | | [place], [place] | | | | | | [address] | | | | | | [phone] | | | +--------+ + + + [...] + + + as of this encounter Last Filed Vital Signs + + + + | Vital Sign | Reading | Time Taken | + + + + | Blood Pressure | - | - | + + + + | Pulse | - | - | + + + + | Temperature | - | - | + + + + | Respiratory Rate | - | - | + + + + | Oxygen Saturation | - | - | + + + + | Inhaled Oxygen | - | - | | Concentration | | | + + + + | Weight | 83.9 kg (185 lb) | 07/08/2018 5:58 PM PDT | + + + + | Height | - | - | + + + + | Body Mass Index | 27.32 | 07/08/2018 5:58 PM PDT | + + + + in this encounter Medications at Time of Discharge + + + +---------+ + + | Medication | Sig. | Disp. | Refills | Start | End Date | | | | | | Date | | + + + +---------+ + + | aspirin 325 mg | Take 1 Tab by mouth | 100 Tab | 5 | 05/28/20 | | | Oral tablet | once daily. | | | 13 | | + + + +---------+ + + | azaTHIOprine 100 | Take 50 mg by mouth | | | | | | mg oral tablet | three times daily. | | | | | + + + +---------+ + + | AZATHIOPRINE 50 mg | take 3 tablets by | 270 | 3 | 07/06/20 | | | oral tablet | mouth every evening | tablet | | 18 | | + + + +---------+ + + | calcium-vitamin D | Take 1 Tab by mouth | 100 Tab | 5 | 05/28/20 | | | 500 mg(1,250mg) -200 | three times daily | | | 13 | | | unit Oral tablet | with meals. | | | | | + + + +---------+ + + | lansoprazole | Take 1 Cap by mouth | 30 Cap | 5 | 06/29/20 | | | (PREVACID) 30 mg | once daily in the | | | 13 | | | Oral capsule,delayed | morning. Administer | | | | | | release(DR/EC) | before food; best if | | | | | | | taken before | | | | | | | breakfast. | | | | | + + + +---------+ + + | magnesium oxide | Take 1 Tab by mouth | 60 Tab | 5 | 06/29/20 | | | 400 mg Oral tablet | two times daily. | | | 13 | | + + + +---------+ + + | multivitamin Oral | Take 1 Cap by mouth | 100 Cap | 5 | 05/28/20 | | | capsule | once daily. | | | 13 | | + + + +---------+ + + | | Take by mouth. | | | | | | multivitamin-therape | | | | | | | utic minerals | | | | | | | (VITAMINS AND | | | | | | | MINERALS) oral | | | | | | | tablet | | | | | | + + + +---------+ + + | PREDNISONE 5 mg | take 1 tablet by | 90 | 4 | 02/05/20 | | | oral | mouth once daily | tablet | | 18 | | | tabletIndications: | | | | | | | Liver replaced by | | | | | | | transplant (HCC) | | | | | | + + + +---------+ + + | TACROLIMUS 1 mg | take 3 capsules by | 540 | 5 | 05/07/20 | | | oral | mouth twice a day | capsule | | 18 | | | capsuleIndications: | | | | | | | Liver replaced by | | | | | | | transplant (HCC) | | | | | | + + + +---------+ + + | | Take 1 Tab by mouth | 30 Tab | 5 | 06/29/20 | | | trimethoprim-sulfame | once daily. | | | 13 | | | thoxazole 80-400 mg | | | | | | | Oral tablet | | | | | | + + + +---------+ + + as of this encounter Plan of Treatment +--------+---------+ + + + | Date | Type | Specialty | Care Team | Description | +--------+---------+ + + + | 06/08/ | Office | Liver Transplant | José Miguel Ornelas | | | 2019 | Visit | | MD Maximo [address] | | | | | | [place] [facility] [place] | | | | | | [address] | | | | | | [phone] | | | | | | | [...] + + + in this encounter Results PROCEDURE NOTE (07/08/2018 11:59 PM)MRI [facility] WWO CONTRAST (+ LIVER MASS) (2017 6:58 PM) + + + | Narrative | Performed At | + + + | EXAM: Abdomen MRI/MRCP without and with intravenous contrast. | [facility] | | HISTORY: Abnormal liver function tests [...] Note | + + | Service Account, [place] [facility] In Interface - 07/09/2018 8:50 AM [...] | | | + +---------+ + + in this encounter Visit Diagnoses + + | Diagnosis | + + | Liver replaced by transplant (HCC) | + + | Liver replaced by transplant | + + Administered Medications + +---------+ +-------+------+------+ | Medication Order | MAR | Action | Dose | Rate | Site | | | Action | Date | | | | + +---------+ +-------+------+------+ | gadoterate meglumine (DOTAREM) | IV Push | | 17 mL | | | | 0.5 mmol/mL (376.9 mg/mL) | | 8 18:30 | | | | | injection 17 mL 17 mL (rounded | | PDT | | | | | from 16.78 mL = 0.2 mL/kg | | | | | | | 83.9 kg), intravenous, ONCE, 1 | | | | | | | dose, 07/08/18 at 1830 | | | | | | + +---------+ +-------+------+------+ +---+---+ | | | +---+---+ in this encounter"
--- OUTSIDE RECORDS SUMMARY | ~2018-08-15 | XMS | Encounter Summary ---
Demographics + + + | Address | [address] | | | [place] [address] | + + + | Home Phone | | + + + | Preferred Language | Unknown | + + + | Marital Status | | + + + | Zoroastrianism Affiliation | LDS | + + + [...] + | MATTY GAMBLE | ECON | [address] | | | | | [place] | | | | | [address] | | + + + + + Care Team Providers + +------+ + | Care Principal System Software Engineer Name | Role | Phone | + +------+ + | Sam Powell DO | PCP | | + +------+ + Encounter Details +--------+ + + + + | Date | Type | Department | Care Team | Description | +--------+ + + + + | 06/09/ | MyChart | Transplant | Dora Haywood, | labs | | 2018 | Encounter | Coordinators [address] | RN [address] | | | | | [address] | [facility] | | | | | Road [place], [place] | [place], [place] | | | | | [address] | [address] | | | | | [phone] | | | +--------+ + + + [...] 2018 | Visit | | MD Maximo [address] | | | | | | [place], [place] | | | | | | [address] | | | | | | [phone] | | | | | | | | +--------+---------+ + + + as of this encounter Visit Diagnoses Not on filein this encounter"
--- OUTSIDE RECORDS SUMMARY | ~2018-08-15 | XMS | Encounter Summary ---
Demographics + + + | Address | [address] | | | [place] [address] | + + + | Home Phone | | + + + | Preferred Language | Unknown | + + + | Marital Status | | + + + | Jew Affiliation | LDS | + + + | Race | White | + + + | Ethnic Group | Not or | + + + Author + + + | Author | [facility] | + + + | Organization | [facility] | + + + | Address | Unknown | + + + | Phone | Unavailable | + + + Support + + + + + | Name | Relationship | Address | Phone | + + + + + | MATTY GAMBLE | ECON | [address] | | | | | [place] | | | | | [address] | | + + + + + Care Team Providers + +------+ + | Care Manufacturing Software Engineer Name | Role | Phone [...] | | Coordinators [address] MD [address] | | | | | [address] | [place], [place] | | | | | Road [place], [place] | [address] | | | | | [address] | [phone] | | | | | [phone] | | | +--------+ + + + [...] 2019 | Visit | | MD Maximo [address] | | | | | | [place], [place] | | | | | | [address] | | | | | | [phone] | | | | | | | [...] + + | [facility] - | [address] | [place] | [phone] | | [place] | | | | + + + + + in this encounter Visit Diagnoses Not on filein this encounter"
--- OUTSIDE RECORDS SUMMARY | ~2018-08-15 | XMS | Encounter Summary ---
Demographics + + + | Address | [address] | | | [place] [address] | + + + | Home Phone | | + + + | Preferred Language | Unknown | + + + | Marital Status | | + + + | Voodoo Affiliation | LDS | + + + | Race | White | + + + | Ethnic Group | Not or | + + + Author + + + | Author | [facility] | + + + | Organization | [facility] | + + + | Address | Unknown | + + + | Phone | Unavailable | + + + Support + + + + + | Name | Relationship | Address | Phone | + + + + + | MATTY MACK | ECON | [address] | | | | | [place] | | | | | [address] | | + + + + + Care Team Providers + +------+ + | Care Buffer Automatic Name | Role | Phone | + [...] | | | Liver | José Miguel Brooks, | [address] | | | | | replaced by | [address] | [address] | | | | | transplant | [address] | Glenn [address]on | | | | | (HCC) | [place], [place] | Road | | | | | Procedures | [address] | Mailcode: | | | | | US BIOPSY | Phone: | [address] [facility] | | | | | LIVER WITH | [phone] | Hospital | | | | | GUIDANCE | Fax: | [place], [place] | | | | | | [phone] | [address] | | | | | | | Phone: | | | | | | | [phone] | | | | | | | Fax: | | | | | | | [phone] | +--------+--------+ + + + + Diagnostic Testing (Routine) +--------+--------+ + + + + | Status | Reason | Specialty | Diagnoses / | Referred By | Referred To | | | | | Procedures | Contact | Contact | +--------+--------+ + + + + | Closed | | Radiology | Diagnoses | Ceci, | [facility] | | | | | Liver | José Miguel Brooks, | [facility] [address] | | | | | replaced by | [address] | [address] | | | | | transplant | [address] | Glenn [address] | | | | | (HCC) | [place], [place] | Road | | | | | Procedures | [address] | Mailcode: | | | | | US BIOPSY | Phone: | [address] [facility] | | | | | LIVER WITH | [phone] | Hospital | | | | | GUIDANCE | Fax: | [place], [place] | | | | | | [phone] | [address] | | | | | | | Phone: | | | | | | | [phone] | | | | | | | Fax: | | | | | | | [phone] | +--------+--------+ + + + + Reason for Visit AUTH/CERT +--------+--------+ + + + + | Status | Reason | Specialty | Diagnoses / | Referred By | Referred To | | | | | Procedures | Contact | Contact | +--------+--------+ + + + + | | | | | | | +--------+--------+ + + + + Encounter Details +--------+ + + + + | Date | Type | Department | Care Team | Description | +--------+ + + + + | 07/09/ | Hospital | [facility] [address] | Manjinder Paris, | | | 2018 | Encounter | [address] | [address] | | | | | [address] [place] [address] | Glenn Trista Alfred | | | | | [place] [address] | [place], [place] | | | | | [phone] | [address] | | | | | | [phone] | | | | | | | | +--------+ + + [...] AM PDT | + + + + in this encounter Discharge Instructions Rachel Guevara RN - 07/09/2018[place] Care Instructions: Liver Biopsy Diet and Medications: Resume your normal diet and take your usual medications unless the [facility] care provider who ordered your biopsy instructed otherwise. Do not start taking blood thinners or antiplatelet medications without clear instructions f rom the health care provider who ordered your biopsy. If you need medication for pain after your procedure, take prescription or [id number]-[id number] pain medications as instructed by the health care provider who ordered your biopsy. Contact the provider who ordered your biopsy if you think your pain medication is not working or yo u have any questions about your pain medication. Puncture Site Care: Keep the puncture site clean and dry. If you have a bandage or dressing over your puncture site, you may remove it 24 hours after your procedure. You may shower on ce you have removed your bandage or dressing. Activity: When you return home, rest quietly and limit your activity for the remainder of t he day. No strenuous activity, such as heavy lifting or athletics, for 24 hours. You may ret urn to work the day after your procedure, as long as you do not need to do any heavy lifting or vigorous activity. When should I call someone? Notify your health care provider or the Diagnostic Radiology Department if you develop any of the following problems: Chills or a fever Dizziness or trouble breathing Nausea and vomiting that won t stop Pain in the chest or shoulder Increasing abdominal swelling or bloating Blood in the stool Increased pain, redness, swelling, or drainage at your puncture site Excessive bright red bleeding from your puncture site How to Reach Us: Friday thru Friday 8:00 am to 5:00 pm: Call and ask to speak with a [facility] radiology nurse. After 4:30 pm: Call the [facility] slitting machine operator at and ask to have the [facility] resident systems administration analyst paged. If you feel you require immediate care, please go to the nearest Emergency Room or call 1 . Follow-up Care: Follow-up care is an important part of your treatment and safety. Be sure to make and go to all appointments with the health care provider who ordered your procedure. Results: Please contact the health care provider who ordered your procedure to discuss any results.i n this encounter Medications at Time of Discharge [...] | | | | | | transplant ([facility]) | | | | | | + + + +---------+ + + | TACROLIMUS 1 mg | take 3 capsules by | 540 | 5 | 05/07/20 | | | oral | mouth twice a day | capsule | | 18 | | | capsuleIndications: | | | | | | | Liver replaced by | | | | | | | transplant ([facility]) | | | | | | + [...] 2019 | Visit | | MD Maximo [address] | | | | | | [place], [place] | | | | | | [address] | | | | | | [phone] | | | | | | | [...] + + + in this encounter Results US BIOPSY LIVER WITH GUIDANCE (07/09/2018 [...] documented in EPIC. | | | COMPARISON: [facility] 07/08/2018 TECHNIQUE: After a procedures, | [...] Note | + + | Service Account, Tammy Benitez In Interface - 07/09/2018 10:15 AM PDT [...] as documented in EPIC. | | COMPARISON: [facility] 07/08/2018 TECHNIQUE: After a procedures, alternatives, [...] necessary, edited the report. I agree with jack brooks report as now presented. | | | [...] History | Elevated LFTs. Per | | [facility]PART[facility] | | | chart, history of [...] Pathologic | A. Allograft liver, | | [facility] DEPART[facility] | | Diagnosis | biopsy: Changes [...] | Received in formalin is | | [facility] DEPART[facility] | | | a single specimen | | OF PATHOLOGY | | | labeled with the | | | | | patient's name (initials | | | | | JL) and medical record | | | | | number [id number]. | | | | | Liver: Received [...] | ANCILLARY | Analyte specific | | [facility] DEPART[facility] | | INFORMATION | reagents are [...] | | | | | determined by [facility] | | | | | laboratories. It [...] | + + + + + | [facility] | [address] | [place] [address] | | | PATHOLOGY | [address] | | | + + + + + in this encounter Visit Diagnoses + + | Diagnosis | + + | Liver replaced by transplant (HCC) | + + | Liver replaced by transplant | + + Admitting Diagnoses + + | Diagnosis | + + | Liver replaced by transplant (HCC) | + + Administered Medications + +--------+ +---------+------+------+ | Medication Order | MAR | Action | Dose | Rate | Site | | | Action | Date | | | | + +--------+ +---------+------+------+ | fentaNYL (SUBLIMAZE) injection | Given | | 100 mcg | | | | intravenous, INTRAPROCEDURE PRN, | | 8 09:29 | | | | | Starting Gabrielle 07/09/18 at 29, | | PDT | | | | | Until Discontinued | | | | | | + +--------+ +---------+------+------+ +-------+ +--------+---+---+ | Given | | 50 mcg | | | | | 8 09:34 | | | | | | PDT | | | | +-------+ +--------+---+---+ +---+---+ | | | +---+---+ + +-------+ +------+---+---+ | midazolam (PF) (VERSED) | Given | | 1 mg | | | | injection intravenous, | | 8 09:27 | | | | | INTRAPROCEDURE PRN, Starting Gabrielle | | PDT | | | | | 07/09/18 at 0927, Until | | | | | | | Discontinued | | | | | | + +-------+ +------+---+---+ +---+---+ | | | +---+---+ in this encounter
--- OUTSIDE RECORDS SUMMARY | ~2018-08-15 | XMS | Encounter Summary ---
Demographics + + + | Address | [address] | | | [place] [address] | + + + | Home Phone | | + + + | Preferred Language | Unknown | + + + | Marital Status | | + + + | Oriental Orthodox Affiliation | LDS | + + + | Race | White | + + + | Ethnic Group | Not or | + + + Author + + + | Author | [facility] | + + + | Organization | [facility] | + + + | Address | Unknown | + + + | Phone | Unavailable | + + + Support + + + + + | Name | Relationship | Address | Phone | + + + + + | MATTY GAMBLE | ECON | [address] | | | | | [place] | | | | | [address] | | + + + + + Care Team Providers + +------+ + | Care Senior Major Gifts Officer Name | Role | Phone | + +------+ + | Sam Powell DO | PCP | | + +------+ + Encounter Details +--------+ + + + + | Date | Type | Department | Care Team | Description | +--------+ + + + + | 07/09/ | MyChart | Transplant | Dora Haywood, | RE: RE: Appointments | | 2018 | Encounter | Coordinators [address] | RN [address] | | | | | [address] [facility] | [facility] | | | | | Road [place], [place] | [place], [place] | | | | | [address] | [address] | | | | | [phone] | | | +--------+ + + + [...] 2019 | Visit | | MD Maximo [address] | | | | | | [place], [place] | | | | | | [address] | | | | | | [phone] | | | | | | | | +--------+---------+ + + + as of this encounter Visit Diagnoses Not on filein this encounter"
--- OUTSIDE RECORDS SUMMARY | ~2018-08-15 | XMS | Encounter Summary ---
Demographics + + + | Address | [address] | | | [place] [address] | + + + | Home Phone | | + + + | Preferred Language | Unknown | + + + | Marital Status | | + + + | Uatsdin Affiliation | LDS | + + + | Race | White | + + + | Ethnic Group | Not or | + + + Author + + + | Author | [facility] | + + + | Organization | [facility] | + + + | Address | Unknown | + + + | Phone | Unavailable | + + + Support + + + + + | Name | Relationship | Address | Phone | + + + + + | MATTY GAMBLE | ECON | [address] | | | | | [place] | | | | | [address] | | + + + + + Care Team Providers + +------+ + | Care Insurance Manager Name | Role | Phone | [...] | | [address] | [place], [place] | | | | | Road [place], [place] | [address] | | | | | [address] | [phone] | | | | | [phone] | | | +--------+--------+ + + + [...] 2019 | Visit | | MD Maximo [address] | | | | | | [place] [facility] [place] | | | | | | [address] | | | | | | [phone] | | | | | | | | +--------+---------+ + + + as of this encounter Visit Diagnoses Not on filein this encounter"
--- OUTSIDE RECORDS SUMMARY | ~2018-08-15 | XMS | Encounter Summary ---
Demographics + + + | Address | [address] | | | [place] [address] | + + + | Home Phone | | + + + | Preferred Language | Unknown | + + + | Marital Status | | + + + | Episcopalian Affiliation | LDS | + + + | Race | White | + + + | Ethnic Group | Not or | + + + Author + + + | Author | [facility] | + + + | Organization | [facility] | + + + | Address | Unknown | + + + | Phone | Unavailable | + + + Support + + + + + | Name | Relationship | Address | Phone | + + + + + | MATTY GAMBLE | ECON | [address] | | | | | [place] | | | | | [address] | | + + + + + Care Team Providers + +------+ + | Care Card Maker Name | Role | Phone | + +------+ + | Sam Powell DO | PCP | | + +------+ + Reason for Visit + + + | Reason | Comments | + + + | Follow-up encounter | Liver biopsy results | + + + Encounter Details +--------+ + + + + | Date | Type | Department | Care Team | Description | +--------+ + + + + | 07/24/ | Telephone | Digestive Health | José Miguel Ornelas | Follow-up encounter | | 2018 | | Center at [facility] [address] | MD Maximo [address] | (Liver biopsy | | | | Floor [address] | [address] [place], [place] | results) | | | | Ave Mail[facility]: [facility] | [address] | | | | | [facility] | [phone] | | | | | and [address], [address] | | | | | | floor [place], [place] | | | | | | [address] | | | | | | [phone] | | | +--------+ + + + [...] 2019 | Visit | | MD Maximo [address] | | | | | | [place] | | | | | | [address] | | | | | | [phone] | | | | | | | | +--------+---------+ + + + as of this encounter Visit Diagnoses Not on filein this encounter"
--- OUTSIDE RECORDS SUMMARY | ~2018-08-15 | XMS | Encounter Summary ---
Demographics + + + | Address | [address] | | | [place] [address] | + + + | Home Phone | | + + + | Preferred Language | Unknown | + + + | Marital Status | | + + + | Amish Affiliation | LDS | + + + | Race | White | + + + | Ethnic Group | Not or | + + + Author + + + | Author | [facility] | + + + | Organization | [facility] | + + + | Address | Unknown | + + + | Phone | Unavailable | + + + Support + + + + + | Name | Relationship | Address | Phone | + + + + + | MATTY GAMBLE | ECON | [address] | | | | | [place] | | | | | [address] | | + + + + + Care Team Providers + +------+ + | Care Store Assistant Name | Role | Phone | + +------+ + | Sam Powell DO | PCP | | + +------+ + Reason for Visit + + + | Reason | Comments | + + + | Liver Transplant | path conference | | Follow Up | | + + + Encounter Details +--------+ + + + + | Date | Type | Department | Care Team | Description | +--------+ + + + + | 07/24/ | Documentati | Transplant | Helen Weller RN | Liver Transplant | | 2018 | on | Coordinators [address] | Follow Up (path | | | | [address] | [address], | conference) | | | | Road [place], [place] | [place] [address] | | | | | [address] | | | | | | [phone] | | | +--------+ + + + [...] 2019 | Visit | | MD Maximo [address] | | | | | | [place] | | | | | | [address] | | | | | | [phone] | | | | | | | | +--------+---------+ + + + as of this encounter Visit Diagnoses Not on filein this encounter"
--- OUTSIDE RECORDS SUMMARY | ~2018-08-15 | XMS | Encounter Summary ---
Demographics + + + | Address | [address] | | | [place] [address] | + + + | Home Phone | | + + + | Preferred Language | Unknown | + + + | Marital Status | | + + + | Episcopal Affiliation | LDS | + + + | Race | White | + + + | Ethnic Group | Not or | + + + Author + + + | Author | [facility] | + + + | Organization | [facility] | + + + | Address | Unknown | + + + | Phone | Unavailable | + + + Support + + + + + | Name | Relationship | Address | Phone | + + + + + | MATTY GAMBLE | ECON | [address] | | | | | [place] | | | | | [address] | | + + + + + Care Team Providers + +------+ + | Care Black Oxide Coating Equipment Tender Name | Role | Phone | + [...] Liver | José Miguel Marsh, | [address] | | | | | replaced by | [address] | [address] | | | | | transplant | [address] | [address] | | | | | (HCC) | [place], [place] | Road | | | | | Procedures | [address] | Mailcode: | | | | | US BIOPSY | Phone: | [address] [facility] | | | | | LIVER WITH | [phone] | Hospital | | | | | GUIDANCE | Fax: | [place], [place] | | | | | | [phone] | [address] | | | | | | | Phone: | | | | | | | [phone] | | | | | | | Fax: | | | | | | | [phone] | +--------+--------+ + + + + Diagnostic [...] | | | | | (HCC) | [place], [place] | Road | | | | | Procedures | [address] | Mailcode: | | | | | MRI | Phone: | [address] [facility] | | | | | [facility] | [phone] | Hospital | | | | | PHY WWO | Fax: | [place], [place] | | | | | CONTRAST (+ | [phone] | [address] | | | | | LIVER MASS) | | Phone: | | | | | | | [phone] | | | | | | | Fax: | | | | | | | [phone] | +--------+--------+ + + + + Reason for Visit + + + | Reason | Comments | + + + | Liver Transplant | elevated lft's | | Follow Up | | + + + Encounter Details +--------+ + + + + | Date | Type | Department | Care Team | Description | +--------+ + + + + | 06/23/ | Documentati | Transplant | José Miguel Ornelas | Liver Transplant | | 2018 | on | Coordinators [address] | MD Maximo [address] | Follow Up (elevated | | | | [address] [facility] | [place], [place] | lft's) | | | | Road [place], [place] | [address] | | | | | [address] | [phone] | | | | | [phone] | | | +--------+ + + + [...] 2019 | Visit | | MD Maximo [address] | | | | | | [place] [facility] [place] | | | | | | [address] | | | | | | [phone] | | | | | | | | +--------+---------+ + + + as of this encounter Results US BIOPSY LIVER WITH [...] with the Sedation/Analgesia plan as documented in [facility]. | | | COMPARISON: [facility] 07/08/2018 TECHNIQUE: After a procedures, | [...] Note | + + | Service Account, Vericept In Interface - 07/09/2018 10:15 AM PDT [...] with the Sedation/Analgesia plan as documented in [facility]. | | COMPARISON: [facility] 07/08/2018 TECHNIQUE: After a procedures, alternatives, [...] 150 mcg Fentanyl IV. Sedation start time 926. Sedation stop time 09. | | FINDINGS: The liver demonstrates normal [...] | | | + +---------+ + + MRI [facility]IO[facility] WWO CONTRAST (+ LIVER MASS) (07/08/2018 6:58 PM) + + + | Narrative [...] | + + | Service Account, Tammy Res In Interface - 07/09/2018 8:50 AM [...] + | Liver replaced by transplant (HCC) - Primary | + + | Liver replaced by transplant | + +"
--- OUTSIDE RECORDS SUMMARY | ~2018-08-15 | XMS | Encounter Summary ---
Demographics + + + | Address | [address] | | | [place] [address] | + + + | Home Phone | | + + + | Preferred Language | Unknown | + + + | Marital Status | | + + + | Adventist Affiliation | LDS | + + + | Race | White | + + + | Ethnic Group | Not or | + + + Author + + + | Author | [facility] | + + + | Organization | [facility] | + + + | Address | Unknown | + + + | Phone | Unavailable | + + + Support + + + + + | Name | Relationship | Address | Phone | + + + + + | MATTY GAMBLE | ECON | [address] | | | | | [place] | | | | | [address] | | + + + + + Care Team Providers + +------+ + | Care Application Software Engineer Name | Role | Phone [...] Liver | José Miguel Marsh, | [address] | | | | | replaced by | [address] | [address] | | | | | transplant | [address] | [address] | | | | | (HCC) | [place], [place] | Road | | | | | Procedures | [address] | Mailcode: | | | | | US BIOPSY | Phone: | [address] [facility] | | | | | LIVER WITH | [phone] | Hospital | | | | | GUIDANCE | Fax: | [place], [place] | | | | | | [phone] | [address] | | | | | | | Phone: | | | | | | | [phone] | | | | | | | Fax: | | | | | | | [phone] | +--------+--------+ + + + + Diagnostic [...] | | | | | (HCC) | [place], [place] | Road | | | | | Procedures | [address] | Mailcode: | | | | | MRI | Phone: | [address] [facility] | | | | | [facility] | [phone] | Hospital | | | | | PHY WWO | Fax: | [place], [place] | | | | | CONTRAST (+ | [phone] | [address] | | | | | LIVER MASS) | | Phone: | | | | | | | [phone] | | | | | | | Fax: | | | | | | | [phone] | +--------+--------+ + + + + Reason [...] (elevated | | | | [address] [facility] | [place], [place] | lft's) | | | | Road [place], [place] | [address] | | | | | [address] | [phone] | | | | | [phone] | | | +--------+ + + + [...] 2019 | Visit | | MD Maximo [address] | | | | | | [place] [facility] [place] | | | | | | [address] | | | | | | [phone] | | | | | | | [...] with the Sedation/Analgesia plan as documented in [facility]. | | | COMPARISON: [facility] 07/08/2018 TECHNIQUE: After a procedures, | | [...] Note | + + | Service Account, WhoWanna In Interface - 07/09/2018 10:15 AM PDT [...] with the Sedation/Analgesia plan as documented in [facility]. | | COMPARISON: [facility] 07/08/2018 TECHNIQUE: After a procedures, alternatives, risks, [...]
--- OUTSIDE RECORDS SUMMARY | ~2018-08-15 | XMS | Encounter Summary ---
Demographics + + + | Address | [address] | | | [place] [address] | + + + | Home Phone | | + + + | Preferred Language | Unknown | + + + | Marital Status | | + + + | Cheondoism Affiliation | LDS | + + + | Race | White | + + + | Ethnic Group | Not or | + + + Author + + + | Author | [facility] | + + + | Organization | [facility] | + + + | Address | Unknown | + + + | Phone | Unavailable | + + + Support + + + + + | Name | Relationship | Address | Phone | + + + + + | MATTY GAMBLE | ECON | [address] | | | | | [place] | | | | | [address] | | + + + + + Care Team Providers + +------+ + | Care Commodity Loan Clerk Name | Role | Phone | [...] | | | | | [address] [facility] | [facility] | | | | | Road [place], [place] | [place], [place] | | | | | [address] | [address] | | | | | [phone] | | | +--------+ + + + [...] 2019 | Visit | | MD Maximo [address] | | | | | | [place], [place] | | | | | | [address] | | | | | | [phone] | | | | | | | | +--------+---------+ + + + as of this encounter Visit Diagnoses Not on filein this encounter"
--- OUTSIDE RECORDS SUMMARY | ~2018-08-15 | XMS | Encounter Summary ---
Demographics + + + | Address | [address] | | | [place] [address] | + + + | Home Phone | | + + + | Preferred Language | Unknown | + + + | Marital Status | | + + + | Alevism Affiliation | LDS | + + + | Race | White | + + + | Ethnic Group | Not or | + + + Author + + + | Author | [facility] | + + + | Organization | [facility] | + + + | Address | Unknown | + + + | Phone | Unavailable | + + + Support + + + + + | Name | Relationship | Address | Phone | + + + + + | MATTY GAMBLE | ECON | [address] | | | | | [place] | | | | | [address] | | + + + + + Care Team Providers + +------+ + | Care International Student Counselor Name | Role | Phone | + +------+ + | Sam Powell DO | PCP | | + +------+ + Reason for Visit + + + | Reason | Comments | + + + | Liver Transplant | follow-up MRCP | | Follow Up | | + + + Encounter Details +--------+ + + + + | Date | Type | Department | Care Team | Description | +--------+ + + + + | 07/09/ | Documentati | Transplant | Helen Weller, RN | Liver Transplant | | 2018 | on | Coordinators [address] | [address] | Follow Up (follow-up | | | | [address] | [address] [place], | [facility]) | | | | Road [place], [place] | [place] [address] | | | | | [address] | | | | | | [phone] | | | +--------+ + + + [...] | | | | | | [place] | | | | | | [address] | | | | | | [phone] | | | | | | | | +--------+---------+ + + + as of this encounter Visit Diagnoses Not on filein this encounter"
--- OUTSIDE RECORDS SUMMARY | ~2018-08-15 | XMS | Encounter Summary ---
Demographics + + + | Address | [address] | | | [place] [address] | + + + | Home Phone [...] + | MATTY GAMBLE | ECON | [address] | | | | | [place] | | | | | [address] | | + + + + + Care Team Providers + +------+ + | Care Bogger Operator Name | Role | Phone | + +------+ + | Sam Powell DO | PCP | | + +------+ + Reason for Visit + + + | Reason | Comments | + + + | Follow-up visit | Liver trasnplanted | + + + Office Visit - E/M Services (Routine) + +--------+ + + + + | Status | Reason | Specialty | Diagnoses / | Referred By | Referred To | | | | | Procedures | Contact | Contact | + +--------+ + + + + | Pending | | Liver | Diagnoses | Walker, | Txc Trans | | Review | | Transplant | Liver | Sam Olsen DO | Coord Liver | | | | | transplant | [address] | [address] | | | | | status | [address] | [facility] | | | | | Procedures | [place], | Road | | | | | [place] | [place] [address] | [place], [place] | | | | | OFFICE/OUTPT | Phone: | [address] | | | | | | [phone] | Phone: | | | | | VISIT,SEGUN HOUSER | Fax: | [phone] | | | | | VL IV | [phone] | Fax: | | | | | | | [phone] | + +--------+ + + + + Encounter Details +--------+---------+ + + + | Date | Type | Department | Care Team | Description | +--------+---------+ + + + | 06/09/ | Office | Liver Transplant | José Miguel Ornelas | Immunosuppression | | 2018 | Visit | at [facility] | MD Maximo [address] | (HCC) (Primary Dx); | | | | [address] | [address] [place], [place] | Liver transplanted | | | | [address] | [address] | (HCC); Elevated | | | | [place], [place] | [phone] | liver enzymes | | | | [address] | | | | | | [phone] | | | +--------+---------+ + + + Social History + +-------+ [...] + + + | Blood Pressure | 154/115 | 06/09/2018 8:59 AM PDT | + + + + | Pulse | 80 | 06/09/2018 8:59 AM PDT | + + + + | Temperature | - | - | + + + + | Respiratory Rate | 16 | 06/09/2018 8:59 AM PDT | + + + + | Oxygen Saturation | 98% | 06/09/2018 8:59 AM PDT | + + + + | Inhaled Oxygen | - | - | | Concentration | | | + + + + | Weight | 83.9 kg (185 lb) | 06/09/2018 8:59 AM PDT | + + + + | Height | 175.3 cm (5' 9") | 06/09/2018 8:59 AM PDT | + + + + | Body Mass Index | 27.32 | 06/09/2018 8:59 AM PDT | + + + + in this encounter Instructions Patient Instructions - José Miguel Ornelas MD - 06/09/2018 9:00 AM PDT1. No change in immune suppression 2. Labs every 3 months 3. Return to see me one yearin this encounter Progress Notes José Miguel Ornelas MD - 06/09/2018 9:00 AM PDTFormatting of this note may be different from the original. Problem list (obtained from previous visit, updated this visit): 1. 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 1.2 Post-op bile leak; biloma drain 06/11/13, revised 06/14/13, pulled 07/07/13; int/ext bilia ry drain placed 06/30/13, upsized 07/07/13; changed 07/20/13; removed 09/15/13 1.3 Transient elevation of aminotransferases, got MRCP 12/01/15 showing no biliary abnormali ties; chapin bx 12/19/15 reactive bile duct changes, no rejection 1.4 Immune suppression is tacrolimus 2 (goal trough 4-6) mg bid, azathioprine 150 mg daily 1.5 Persistently elevated (but variable) aminotransferases, ALP and TBili, likely due to sm all bile duct disease, unclear if PSC versus ischemic cholangiopathy Chief Complaint: Follow-up care for transplanted liver and immune suppression management Subjective The patient is feeling well, working a lot, mostly outside. He is not having difficulty wit h the medications or getting labs done. Impression 42 y/o male originally transplant 03/25/04 for PSC, got retransplanted 05/26/13 for recurre nt PSC and now doing well clinically, no evidence of rejection. However, I think it is incre asingly clear that there is some small bile duct disease that is contributing to the elevate d liver numbers, which have been slowly trending worse over the past several years. He had a n MRI in Oct 2017, which did not show any abnormalities, including no bile duct abnormalitie s, and I think this confirms a likely small duct process. We discussed this at length, and kevin zhou that we've pretty thoroughly worked this up with multiple scans (and a biopsy) over douglas e, there is nothing to do except monitor at this point. Recommendations: 1. No change in immune suppression 2. Labs every 3 months 3. Return to see me one year Filed Vitals: 06/09/2018 8:59 AM Height: 1.753 m (5' 9") Weight: 83.9 kg (185 lb) BP: 154/115 Pulse: 80 Resp: 16 SpO2: 98% PainSc: 0 - Zero BMI: 27.32 kg/(m^2) Gen: Pleasant male in NAD HEENT: No scleral icterus; no lesions OP/OC Neck: Supple, no JUAN CV: Reg S1S2 Pulm: Clear B Abd: Soft, NT, ND, +BS all quads; no masses; no shifting dullness; well-healed surgical sc ar Ext: No edema Skin: No spider angiomata Neuro: No asterixis ROS: Gen: No malaise, no fatigue, no chills, no fevers Eyes: No double vision, no yellowness Mouth: No pain on swallowing, no sores, no sticking of food Resp: No shortness of breath, no cough CV: No CP, no palpitations Abd: No constipation, no diarrhea, no black or red stools, no nausea/vomiting Ext: No swelling of legs, no joint pains : No pain on urination or increased frequency of urination Neuro: No new weakness, tingling, or confusion Psych: No depression, no anxiety All other systems otherwise negative Current Outpatient Prescriptions Medication Sig aspirin 325 mg Oral tablet Take 1 Tab by mouth once daily. azaTHIOprine 100 mg oral tablet Take 50 mg by mouth three times daily. AZATHIOPRINE 50 mg oral tablet take 3 tablets by mouth every evening calcium-vitamin D 500 mg(1,250mg) -200 unit Oral tablet Take 1 Tab by mouth three times daily with meals. lansoprazole (PREVACID) 30 mg Oral capsule,delayed release(DR/EC) Take 1 Cap by mouth o nce daily in the morning. Administer before food; best if taken before breakfast. magnesium oxide 400 mg Oral tablet Take 1 Tab by mouth two times daily. multivitamin Oral capsule Take 1 Cap by mouth once daily. multivitamin-therapeutic minerals (VITAMINS AND MINERALS) oral tablet Take by mouth. PREDNISONE 5 mg oral tablet take 1 tablet by mouth once daily sertraline 50 mg oral tablet Take 35 mg by mouth once daily. TACROLIMUS 1 mg oral capsule take 3 capsules by mouth twice a day trimethoprim-sulfamethoxazole 80-400 mg Oral tablet Take 1 Tab by mouth once daily. No current facility-administered medications for this visit. Past Surgical History Procedure Laterality Date Orthotopic liver transplantation March 25, 2004 hepaticojejunostomy with a Chio-en-Y anastomosis Colectomy with ileoanal pouch and loop ileostomy August 2006 Knee surgery age 18 Liver transplant Allergies Allergen Reactions Cellcept [Mycophenolate Mofetil] Nausea Unable to take due to upset stomach Zinc Nausea and Vomiting History Alcohol Use No Family History Problem Relation Genetic Neg Hx No genetic liver problems SH In clinic alone Recent Labs 03/30/18 0651 CR 0.74 AST 87 ALT 59 TBILI 3.0 ALB 4.0 WBC 7.4 HCT 42.1 FK506 5.6 PLT 306 in this encounter Plan of Treatment +--------+---------+ + + + | Date | Type | Specialty | Care Team | Description | +--------+---------+ + + + | 06/08/ | Office | Liver Transplant | José Miguel Ornelas | | | 2018 | Visit | | MD Maximo [address] | | | | | | [place], [place] | | | | | | [address] | | | | | | [phone] | | | | | | | | +--------+---------+ + + + as of this encounter Visit Diagnoses + + | Diagnosis | + + | Immunosuppression (HCC) - Primary | + + | Unspecified disorder of immune mechanism | + + | Liver transplanted (HCC) | + + | Liver replaced by transplant | + + | Elevated liver enzymes | + + | Nonspecific elevation of levels of transaminase or lactic acid dehydrogenase (LDH) | + +
--- OUTSIDE RECORDS SUMMARY | ~2018-08-15 | XMS | Encounter Summary ---
Demographics + + + | Address | [address] | | | [place] [address] | + + + | Home Phone | | + + + | Preferred Language | Unknown | + + + | Marital Status | | + + + | Jew Affiliation | LDS | + + + | Race | White | + + + | Ethnic Group | Not or | + + + Author + + + | Author | [facility] | + + + | Organization | [facility] | + + + | Address | Unknown | + + + | Phone | Unavailable | + + + Support + + + + + | Name | Relationship | Address | Phone | + + + + + | MATTY MACK | ECON | [address] | | | | | [place] | | | | | [address] | | + + + + + Care Team Providers + +------+ + | Care Machinist Helper Marine Name | Role | Phone | + [...] Liver | José Miguel Brooks, | [address] | | | | | replaced by | [address] | [address] | | | | | transplant | [address] | [address] | | | | | (HCC) | [place], [place] | Road | | | | | Procedures | [address] | Mailcode: | | | | | US BIOPSY | Phone: | [address] [facility] | | | | | LIVER WITH | [phone] | Hospital | | | | | GUIDANCE | Fax: | [place], [place] | | | | | | [phone] | [address] | | | | | | | Phone: | | | | | | | [phone] | | | | | | | Fax: | | | | | | | [phone] | +--------+--------+ + + + + Diagnostic [...] | | | | | (HCC) | [place], [place] | Road | | | | | Procedures | [address] | Mailcode: | | | | | US BIOPSY | Phone: | [address] [facility] | | | | | LIVER WITH | [phone] | Hospital | | | | | GUIDANCE | Fax: | [place], [place] | | | | | | [phone] | [address] | | | | | | | Phone: | | | | | | | [phone] | | | | | | | Fax: | | | | | | | [phone] | +--------+--------+ + + + + Reason [...] + + | 07/09/ | Hospital | [facility] [address] | Manjinder [place], | | | 2018 | Encounter | [address] | [address] | | | | | [address] [place] [address] | [address] | | | | | [place] [address] | [place], [place] | | | | | [phone] | [address] | | | | | | [phone] | | | | | | | [...] encounter Discharge Instructions Rachel Guevara RN - 07/09/2018[facility] Instructions: Liver Biopsy Diet and Medications: Resume your normal diet and take your usual medications unless the [facility] care provider who ordered your biopsy instructed otherwise. Do not start taking blood thinners or antiplatelet medications without clear instructions f rom the health care provider who ordered your biopsy. If you need medication for pain after your procedure, take prescription or iknk-mag-idhgqrs pain medications as instructed by the health [...] Call and [facility] to [facility] a [facility] nurse. After 4:30 pm: Call the [facility] setup operator at and ask to have the diagnostic [facility] resident lactation consultant paged. If you feel you require immediate care, please go to the nearest Emergency Room or call [phone] . Follow-up Care: Follow-up care is an [...] | | | | | | transplant ([facility]) | | | | | | + + + +---------+ + + | TACROLIMUS 1 mg | take 3 capsules by | 540 | 5 | 05/07/20 | | | oral | mouth twice a day | capsule | | 18 | | | capsuleIndications: | | | | | | | Liver replaced by | | | | | | | transplant ([facility]) | | | | | | + [...] 06/08/ | Office | Liver Transplant | oJsé Miguel Ornelas | | | 2019 | Visit | | MD Maximo [address] | | | | | | [place], [place] | | | | | | [address] | | | | | | [phone] | | | | | | | [...] documented in EPIC. | | | COMPARISON: [facility] 07/08/2018 TECHNIQUE: After a procedures, | [...] as documented in EPIC. | | COMPARISON: [facility] 07/08/2018 TECHNIQUE: After a procedures, alternatives, [...] History | Elevated LFTs. Per | | [facility] DEPARTMENT | | | chart, history [...] | Received in formalin is | | [facility] DEPARTMENT | | | a single specimen | | OF PATHOLOGY | | | labeled with the | | | | | patient's name (initials | | | | | JL) and medical record | | | | | number [id number]. | | | | | Liver: Received [...] | ANCILLARY | Analyte specific | | [facility] DEPARTMENT | | INFORMATION | reagents [...] | | | | | determined by [facility] | | | | | laboratories. [...] | + + + + + | [facility] | [address] | [place] [address] | | | PATHOLOGY | [address] [...]
--- OUTSIDE RECORDS SUMMARY | ~2018-08-15 | XMS | Encounter Summary ---
Demographics + + + | Address | [address] | | | [place] [address] | + + + | Home Phone | | + + + | Preferred Language | Unknown | + + + | Marital Status | | + + + | Advent Affiliation | LDS | + + + | Race | White | + + + | Ethnic Group | Not or | + + + Author + + + | Author | [facility] | + + + | Organization | [facility] | + + + | Address | Unknown | + + + | Phone | Unavailable | + + + Support + + + + + | Name | Relationship | Address | Phone | + + + + + | MATTY GAMBLE | ECON | [address] | | | | | [place] | | | | | [address] | | + + + + + Care Team Providers + +------+ + | Care Supervisor Fish Hatchery Name | Role | Phone | + +------+ + | Sam Powell DO | PCP | | + +------+ + Encounter Details +--------+ + + + + | Date | Type | Department | Care Team | Description | +--------+ + + + + | 06/22/ | Abstract | Transplant | [facility] | | | 2018 | | Coordinators [address] MD [address] | | | | | [address] | [place], [place] | | | | | Road [place], [place] | [address] | | | | | [address] | [phone] | | | | | [phone] | | | +--------+ + + + [...] 2019 | Visit | | MD Maximo [address] | | | | | | [place], [place] | | | | | | [address] | | | | | | [phone] | | | | | | | [...] Results LIVER TRANSPLANT POST PANEL (EXT RESULTS) (06/19/2018 6:57 AM) + +-------+ + + | Component [...] + + | [facility] - | [address] | [place] | [phone] | | [place] | | | | + + + + + in this encounter Visit Diagnoses Not on filein this encounter"
--- OUTSIDE RECORDS SUMMARY | ~2018-08-15 | XMS | Encounter Summary ---
Demographics + + + | Address | [address] | | | [place] [address] | + + + | Home Phone | | + + + | Preferred Language | Unknown | + + + | Marital Status | | + + + | Restorationist Affiliation | LDS | + + + | Race | White | + + + | Ethnic Group | Not or | + + + Author + + + | Author | [facility] | + + + | Organization | [facility] | + + + | Address | Unknown | + + + | Phone | Unavailable | + + + Support + + + + + | Name | Relationship | Address | Phone | + + + + + | MATTY GAMBLE | ECON | [address] | | | | | [place] | | | | | [address] | | + + + + + Care Team Providers + +------+ + | Care Hosiery Repairer Name | Role | Phone | + [...] | | status | [address] | [facility] | | | | | Procedures | [place], | Road | | | | | [place] | [place] [address] | [place], [place] | | | | | OFFICE/OUTPT | Phone: | [address] | | | | | | [phone] | Phone: | | | | | VISIT,SEGUN HOUSER | Fax: | [phone] | | | | | VL IV | [phone] | Fax: | | | | | | | [phone] | + +--------+ + + + + [...] | | | | [address] | [address] [place], [place] | Liver transplanted | | | | [email or web address] | [address] | (HCC); Elevated | | | | [place], [place] | [phone] | liver enzymes | | | | [address] | | | | | | [phone] | | | +--------+---------+ + + + [...] | | | | | | [place], [place] | | | | | | [address] | | | | | | [phone] | | | | | | | [...]
--- OUTSIDE RECORDS SUMMARY | ~2018-08-15 | XMS | Encounter Summary ---
Demographics + + + | Address | [address] | | | [place] [address] | + + + | Home Phone | | + + + | Preferred Language | Unknown | + + + | Marital Status | | + + + | Sikhism Affiliation | LDS | + + + | Race | White | + + + | Ethnic Group | Not or | + + + Author + + + | Author | [facility] | + + + | Organization | [facility] | + + + | Address | Unknown | + + + | Phone | Unavailable | + + + Support + + + + + | Name | Relationship | Address | Phone | + + + + + | MATTY GAMBLE | ECON | [address] | | | | | [place] | | | | | [address] | | + + + + + Care Team Providers + +------+ + | Care Chart Writer Name | Role | Phone | + [...] | [address] | [address], | [facility]) | | | | Road [place], [place] | [place] [address] | | | | | [address] | | | | | | [phone] | | | +--------+ + + + [...] | | | | | | [place] | | | | | | [address] | | | | | | [phone] | | | | | | | | +--------+---------+ + + + as of this encounter Visit Diagnoses Not on filein this encounter"
--- OUTSIDE RECORDS SUMMARY | ~2018-08-15 | XMS | Encounter Summary ---
Demographics + + + | Address | [address] | | | [place] [address] | + + + | Home Phone | | + + + | Preferred Language | Unknown | + + + | Marital Status | | + + + | Mandaen Affiliation | LDS | + + + | Race | White | + + + | Ethnic Group | Not or | + + + Author + + + | Author | [facility] | + + + | Organization | [facility] | + + + | Address | Unknown | + + + | Phone | Unavailable | + + + Support + + + + + | Name | Relationship | Address | Phone | + + + + + | MATTY GAMBLE | ECON | [address] | | | | | [place] | | | | | [address] | | + + + + + Care Team Providers + +------+ + | Care Miller Rod Mill Name | Role | Phone | + +------+ + | Sam Powell DO | PCP | | + +------+ + Encounter Details +--------+ + + + + | Date | Type | Department | Care Team | Description | +--------+ + + + + | 06/23/ | Procedure | Diagnostic Imaging | | | | 2018 | Pass | Services at [facility] | | | | | | [address] | | | | | | [facility] | | | | | | Mailcode: L340 | | | | | | [place]a [place] | | | | | | [place], [place] | | | | | | [address] | | | | | | [phone] | | | +--------+ + + + [...] 2018 | Visit | | MD Maximo [address] | | | | | | [place], [place] | | | | | | [address] | | | | | | [phone] | | | | | | | | +--------+---------+ + + + as of this encounter Visit Diagnoses Not on filein this encounter"
--- OUTSIDE RECORDS SUMMARY | ~2018-08-15 | XMS | Encounter Summary ---
Demographics + + + | Address | [address] | | | [place] [address] | + + + | Home Phone | | + + + | Preferred Language | Unknown | + + + | Marital Status | | + + + | Methodist Affiliation | LDS | + + + | Race | White | + + + | Ethnic Group | Not or | + + + Author + + + | Author | [facility] | + + + | Organization | 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 | | | | | transplant | [address] | [place] | | | | | ([facility]) | [place], [place] | Road | | | | | Procedures | [address] | Mailcode: | | | | | MRI | Phone: | [address] [facility] | | | | | [facility] | [phone] | Hospital | | | | | PHY WWO | Fax: | [place], [place] | | | | | CONTRAST (+ | [phone] | [address] | | | | | LIVER MASS) | | Phone: | | | | | | | [phone] | | | | | | | Fax: | | | | | | | [phone] | +--------+--------+ + + + + Diagnostic [...] | | | | | (HCC) | [place], [place] | Road | | | | | Procedures | [address] | Mailcode: | | | | | MRI | Phone: | [address] [facility] | | | | | [facility] | [phone] | Hospital | | | | | PHY WWO | Fax: | [place], [place] | | | | | CONTRAST (+ | [phone] | [address] | | | | | LIVER MASS) | | Phone: | | | | | | | [phone] | | | | | | | Fax: | | | | | | | [phone] | +--------+--------+ + + + + Reason [...] | | | | | (HCC) | [facility] [place] | Road | | | | | Procedures | [address] | Mailcode: | | | | | MRI | Phone: | [address] [facility] | | | | | [place] | [phone] | Hospital | | | | | PHY WWO | Fax: | [place], [place] | | | | | CONTRAST (+ | [phone] | [address] | | | | | LIVER MASS) | | Phone: | | | | | | | [phone] | | | | | | | Fax: | | | | | | | [phone] | +--------+--------+ + + + + Encounter Details +--------+ + + + + | Date | Type | Department | Care Team | Description | +--------+ + + + + | 07/08/ | Hospital | Diagnostic Imaging | [facility] | | | 2017 | Encounter | Services at [facility] | MD Maximo [address] | | | | | [address] | [place], [place] | | | | | [facility] | [address] | | | | | Mailcode: [address] | [phone] | | | | | [address] | | | | | | [place], [place] | | | | | | [address] | | | | | | [phone] | | | +--------+ + + + [...] 2019 | Visit | | MD Maximo [address] | | | | | | [place] [facility] [place] | | | | | | [address] | | | | | | [phone] | | | | | | | [...] MD | | | Dictation initiated: Agustina Gracia MD 07/09/2018 8:18 AM | | + + + + + | Procedure Note | + + | Service Account, Beauty Noted Res In Interface - 07/09/2018 8:50 AM [...]
--- OUTSIDE RECORDS SUMMARY | ~2018-08-15 | XMS | Encounter Summary ---
Demographics + + + | Address | [address] | | | [place] [address] | + + + | Home Phone | | + + + | Preferred Language | Unknown | + + + | Marital Status | | + + + | Yazidi Affiliation | LDS | + + + | Race | White | + + + | Ethnic Group | Not or | + + + Author + + + | Author | [facility] | + + + | Organization | [facility] | + + + | Address | Unknown | + + + | Phone | Unavailable | + + + Support + + + + + | Name | Relationship | Address | Phone | + + + + + | MATTY GAMBLE | ECON | [address] | | | | | [place] | | | | | [address] | | + + + + + Care Team Providers + +------+ + | Care Clearing Supervisor Name | Role | Phone | + [...] | [address] | [address], | conference) | | | | Road [place], [place] | [place] [address] | | | | | [address] | | | | | | [phone] | | | +--------+ + + + [...] 2019 | Visit | | MD Maximo [address] | | | | | | [place] | | | | | | [address] | | | | | | [phone] | | | | | | | | +--------+---------+ + + + as of this encounter Visit Diagnoses Not on filein this encounter"
--- OUTSIDE RECORDS SUMMARY | ~2018-08-15 | XMS | Encounter Summary ---
Demographics + + + | Address | [address] | | | [place] [address] | + + + | Home Phone | | + + + | Preferred Language | Unknown | + + + | Marital Status | | + + + | Faith Affiliation | LDS | + + + [...] + | MATTY GAMBLE | ECON | [address] | | | | | [place] | | | | | [address] | | + + + + + Care Team Providers + +------+ + | Care Conveyor Belt Repairer Name | Role | Phone | [...] | | | [address] | [facility] | | | | | Road [place], [place] | [place], [place] | | | | | [address] | [address] | | | | | [phone] | | | +--------+ + + + [...] 2018 | Visit | | MD Maximo [address] | | | | | | [place], [place] | | | | | | [address] | | | | | | [phone] | | | | | | | | +--------+---------+ + + + as of this encounter Visit Diagnoses Not on filein this encounter"
--- OUTSIDE RECORDS SUMMARY | ~2018-08-15 | XMS | Encounter Summary ---
Demographics + + + | Address | [address] | | | [place] [address] | + + + | Home Phone | | + + + | Preferred Language | Unknown | + + + | Marital Status | | + + + | Jewish Affiliation | LDS | + + + | Race | White | + + + | Ethnic Group | Not or | + + + Author + + + | Author | [facility] | + + + | Organization | [facility] | + + + | Address | Unknown | + + + | Phone | Unavailable | + + + Support + + + + + | Name | Relationship | Address | Phone | + + + + + | MATTY GAMBLE | ECON | [address] | | | | | [place] | | | | | [address] | | + + + + + Care Team Providers + +------+ + | Care Organisation And Methods Analyst Name | Role | Phone | + [...] | | Coordinators [address] MD [address] | | | | | [address] | [place], [place] | | | | | Road [place], [place] | [address] | | | | | [address] | [phone] | | | | | [phone] | | | +--------+ + + + [...] 2019 | Visit | | MD Maximo [address] | | | | | | [place], [place] | | | | | | [address] | | | | | | [phone] | | | | | | | [...] + + | [facility] - | [address] | [place] | [phone] | | [place] | | | | + + + + + in this encounter Visit Diagnoses Not on filein this encounter"
--- OUTSIDE RECORDS SUMMARY | ~2018-08-15 | XMS | Encounter Summary ---
Demographics + + + | Address | [address] | | | [place] [address] | + + + | Home Phone | | + + + | Preferred Language | Unknown | + + + | Marital Status | | + + + | Zoroastrian Affiliation | LDS | + + + | Race | White | + + + | Ethnic Group | Not or | + + + Author + + + | Author | [facility] | + + + | Organization | [facility] | + + + | Address | Unknown | + + + | Phone | Unavailable | + + + Support + + + + + | Name | Relationship | Address | Phone | + + + + + | MATTY GAMBLE | ECON | [address] | | | | | [place] | | | | | [address] | | + + + + + Care Team Providers + +------+ + | Care Coating Mixer Tender Name | Role | Phone | [...] | | 2018 | | Center at [facility] 6th | MD Maximo [address] | (Liver biopsy | | | | Floor [address] | Ave [place], [place] | results) | | | | Ave Mailcode: [facility] | [address] | | | | | [facility] | [phone] | | | | | and [place], 6th | | | | | | floor [place], [place] | | | | | | [address] | | | | | | [phone] | | | +--------+ + + + [...] [place] | | | | | | [address] | | | | | | [phone] | | | | | | | | +--------+---------+ + + + as of this encounter Visit Diagnoses Not on filein this encounter"
--- OUTSIDE RECORDS SUMMARY | ~2018-08-15 | XMS | Clinical Summary ---
Demographics + + + | Address | [address] | | | [place] [address] | + + + | Home Phone | | + + + | Preferred Language | Unknown | + + + | Marital Status | | + + + | Roman Catholic Affiliation | LDS | + + + [...] + | MATTY MACK | ECON | [address] | | | | | [place] | | | | | [address] | | + + + + + Care Team Providers + +------+ + | Care Gem Technician Name | Role | Phone | + +------+ + | Sam Powell DO | PP | | + +------+ + Source Comments BLU is fully live on both [facility] Amb[facility] and [facility] Allergies + + + + + [...] 2019 | Visit | | MD Maximo [address] | | | | | | [place], [place] | | | | | | [address] | | | | | | [phone] | | | | | | | [...] N/A: | COOK | | 05/26/ | [id number] | | [id number]: Qty: 1 on | | Abdome | MEDICAL | | 2014 | | | 05/26/2013 by Joanna Rosales, | | n | | | | /[id number] | | MD | | | | [...] documented in EPIC. | | | COMPARISON: [facility] 07/08/2018 TECHNIQUE: After a procedures, | | [...] Note | + + | Service Account, Guanghetang In Interface - 07/09/2018 10:15 AM PDT [...] as documented in EPIC. | | COMPARISON: [facility] 07/08/2018 TECHNIQUE: After a procedures, alternatives, risks, [...] History | Elevated LFTs. 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 | | | | | Liver: Received [...] | ANCILLARY | Analyte specific | | [facility] DEPARTMENT | | INFORMATION | reagents are [...] | | | | | determined by [facility] | | | | | laboratories. It [...] | + + + + + | [facility] | [address] | [place] [address] | | | PATHOLOGY | [address] | | | + + + + + PROCEDURE NOTE (07/08/2018 11:59 PM)MRI CHOLANGIOGRAPHY WWO CONTRAST (+ LIVER MASS) (2017 6:58 PM) + + + | Narrative | Performed At | + + + | EXAM: Abdomen MRI/MRCP without and with intravenous contrast. | [facility] | | HISTORY: Abnormal liver function tests [...] as now presented. Final | | signature: Agsutina Garcia MD 07/09/2018 8:48 AM Preliminary: Agustina [...] + + | [facility] - | [address] | [place] | [phone] | | [place] | | | | [...] | PPO | [phone] | [address] [address] [place] | | SHIELD | E BCBS | x | | [address] | [place], [place] | | | | | | | [address] | + +--------+ +------+ + + | [employer] | MODA | [phone] | PPO | +- | [address] [address] | | | OEBB | | | [address] | [place] [address] | | | CONNEX | | | [...] | 1975 | +- | [place] [address] | | | [address] | | [...] | 1975 | +- | [place] [address] | | | | | | [address]: | | | | | | | | | | | | | | [phone] | | | | | | [address] | | + +--------+ +--------+ + +
--- OUTSIDE RECORDS SUMMARY | ~2018-08-15 | XMS | Encounter Summary ---
Demographics + + + | Address | [address] | | | [place] [address] | + + + | Home Phone | | + + + | Preferred Language | Unknown | + + + | Marital Status | | + + + | Alevism Affiliation | LDS | + + + | Race | White | + + + | Ethnic Group | Not or | + + + Author + + + | Author | [facility] | + + + | Organization | [facility] | + + + | Address | Unknown | + + + | Phone | Unavailable | + + + Support + + + + + | Name | Relationship | Address | Phone | + + + + + | MATTY GAMBLE | ECON | [address] | | | | | [place] | | | | | [address] | | + + + + + Care Team Providers + +------+ + | Care Cause Analyst Name | Role | Phone | [...] | 2018 | Encounter | Center at [facility] [address] | | biopsy prep | | | | Yemi Elizabeth | | information. Please | | | | [address] | | read now. | | | | [address] | | | | | | [place], | | | | | | [place] [address] | | | | | | [phone] | | | +--------+ + + + [...] 2019 | Visit | | MD Maximo [address] | | | | | | [place], [place] | | | | | | [address] | | | | | | [phone] | | | | | | | | +--------+---------+ + + + as of this encounter Visit Diagnoses Not on filein this encounter"
--- OUTSIDE RECORDS SUMMARY | ~2018-08-15 | XMS | Clinical Summary ---
Demographics + + + | Address | [address] | | | [place] [address] | + + + | Home Phone | | + + + | Preferred Language | Unknown | + + + | Marital Status | Unknown | + + + | Voodoo Affiliation | Unknown | + + + | Race | Unknown | + + + | Ethnic Group | Unknown | + + + Author + + + | Author | [facility] | + + + | Organization | [facility] | + + + | Address | Unknown | + + + | Phone | Unavailable | + + + Support + + +---------+ + | Name | Relationship | Address | Phone | + + +---------+ + | Toby Gamble | ECON | Unknown | | + + +---------+ + Care Team Providers + +------+ + | Care Circuit Design Engineer Name | Role | Phone | [...] +------+-------+ + | [facility] | PREMER | [id number] | | | [address] [address] | | | A BLUE | 3 | | | [place], [place] | | | CARD | | | | [address] | + +--------+ +------+-------+ + | [employer] | [facility]DS | [id number] | | | | | | HEALTH [...] | | [address] [place] | | | [phone] | [address] | + +--------+ +--------+ + +
--- OUTSIDE RECORDS SUMMARY | ~2018-08-15 | XMS | Encounter Summary ---
Demographics + + + | Address | [address] | | | [place] [address] | + + + | Home Phone | | + + + | Preferred Language | Unknown | + + + | Marital Status | | + + + | Baptist Affiliation | LDS | + + + | Race | White | + + + | Ethnic Group | Not or | + + + Author + + + | Author | [facility] | + + + | Organization | [facility] | + + + | Address | Unknown | + + + | Phone | Unavailable | + + + Support + + + + + | Name | Relationship | Address | Phone | + + + + + | MATTY GAMBLE | ECON | [address] | | | | | [place] | | | | | [address] | | + + + + + Care Team Providers + +------+ + | Care Supervisor Curing Room Name | Role | Phone | + [...] [address] | | | | | [facility] | [facility] | | | | | Road [place], [place] | [place], [place] | | | | | [address] | [address] | | | | | [phone] | | | +--------+ + + + [...] 2019 | Visit | | MD Maximo [address] | | | | | | [place], [place] | | | | | | [address] | | | | | | [phone] | | | | | | | | +--------+---------+ + + + as of this encounter Visit Diagnoses Not on filein this encounter"
[~2018-08-15 19:04] MED LIST: ASPIRIN325 MG PO; CALCIUM + VITA1 EACH PO; CALTRATE 600600 MG PO; IRON325 M1 PO; MOTRIN600 MG PO; MULTI VITAMIN1 EACH PO; OXYCODONE HCL5 MG PO; PREDNISONE5 MG PO; PREVACID30 MG PO; PROGRAF1 MG; SEPTRA DS TABL1 EACH PO; URSODIOL300 MG PO; VSL#3 PACKET1 EACH PO
== END 2018-08-15 21:22 | disposition home or self-care (01) ==
LOC: ED 19:04
PROC: 0HQGXZZ Repair Left Hand Skin, External Approach (ICD-10-PCS; principal; 2018-08-15)
DX: S66.222A Laceration of extensor muscle, fascia and tendon of left thumb at wrist and hand level, initial encounter (principal); W26.0XXA Contact with knife, initial encounter; Z88.8 Allergy status to other drugs, medicaments and biological substances; Z79.899 Other long term (current) drug therapy; Z79.52 Long term (current) use of systemic steroids; Z79.82 Long term (current) use of aspirin
CPT/HCPCS: 12002; 85025; 85610; 85730; 99283